=== PATIENT | male | born 1955 | race Caucasian/White ===

== ENCOUNTER 2016-06-11 11:46 | Inpatient (IN) | payer BC ==
[2016-06-11] MEDS ORDERED: Albuterol/Ipratropium 3.0-0.5 MG/3 ML Neb Soln NEB ONE (12:16)
[2016-06-11] MEDS ORDERED: Albuterol 0.083% 2.5 MG/3 ML Neb Soln NEB ONE (12:36)
[2016-06-11] MEDS ORDERED: methylPREDNISolone Sodium Succinate 125 MG/2 ML SDV IVPUSH ONE (12:36)
[2016-06-11 13:05] LABS: CHLORIDE,CL 104 mmol/L (101-111); SODIUM,NA 138 mmol/L (135-145)
[2016-06-11] MEDS: Sodium Chloride 0.9% 10 ML Syringe FLUSH PRN ×3 (13:10→16:06)
--- NOTE | 2016-06-11 13:33 | EDM.PDOC ---
Scribed by Masha Gongora 06/11/16 1243 for Michael Montgomery MD ED HISTORY OF PRESENT ILLNESS - General Chief Complaint: Respiratory Problem Stated Complaint: COUGH, SORE THROAT Time Seen by Provider: 06/11/16 12:25 Source of Information: Reports: Patient, RN, RN notes reviewed History Limitations: Reports: No limitations - History of Present Illness INITIAL COMMENTS - FREE TEXT/NARRATIVE: Arrives by POV with complaints of worsening SOB with green productive cough and wheezing. Reports SOB x 2-3 months. Has been under evaluation from doctor at [facility]. Had echo on 05/16/[address] chest last week. Pet scan lsat week, but doesn't know the results. Had positive cardiac stress test on and is scheduled for cardiac cath on 06/20/[address] Jamison. He was started on Combivent inhaler but it hasn't been helping. Admits to chills beginning last night. Denies fever or chest pain. Severity: severe Location, General: Reports: chest Improves with: Reports: None Worsens with: Reports: None Associated Symptoms (General): Reports: no other symptoms - Related Data Allergies/ADRs: Allergies Allergy/AdvReac Type Severity Reaction Status Date / Time atorvastatin calcium Allergy Muscle Verified 06/11/16 11:58 [From Lipitor] Aches codeine Allergy Nausea and Verified 06/11/16 11:58 Vomiting Iodinated Contrast Media - Allergy Swelling Verified 06/11/16 11:58 Oral and rosuvastatin calcium Allergy Muscle Verified 06/11/16 11:58 [From Crestor] Aches simvastatin [From Zocor] Allergy Muscle Verified 06/11/16 11:58 Aches Home Meds: Home Meds Levothyroxine [Synthroid] 350 mcg PO DAILY 02/15/15 [History] ALPRAZolam [Xanax] 1.5 mg PO QPM 06/11/16 [History] ARIPiprazole [Abilify] 5 mg PO DAILY 06/11/16 [History] Aspirin [Halfprin] 81 mg PO DAILY 06/11/16 [History] Cholecalciferol (Vitamin D3) [Vitamin D3] 1,000 units PO DAILY 06/11/16 [History ] Diltiazem [Cardizem CD] 120 mg PO DAILY 06/11/16 [History] Escitalopram [Lexapro] 10 mg PO DAILY 06/11/16 [History] Escitalopram [Lexapro] 20 mg PO DAILY 06/11/16 [History] Glucosamine HCl [Vegetarian Glucosamine] 2 tab PO DAILY 06/11/16 [History] Ipratropium/Albuterol Sulfate [Combivent Respimat Inhal [place]] 4 gm IH Q6H PRN 06/11/16 [History] Multivitamin with Minerals [Multiple Vitamin] 1 tab PO DAILY 06/11/16 [History] Nitroglycerin [Nitrostat] 1 tab SL ASDIRECTED PRN 06/11/16 [History] OLANZapine [Olanzapine] 5 mg PO DAILY 06/11/16 [History] [place]-3 Fatty Acids [Maxepa] 2 tab PO DAILY 06/11/16 [History] buPROPion [Wellbutrin SR] 300 mg PO DAILY 06/11/16 [History] Past Medical History Cardiovascular History: Reports: CAD (with ischemia), High cholesterol, Hypertension, Other (see below) (Grade 2 diastolic dysfunction CHF.) Respiratory History: Reports: Other (see below) (bilateral hilar adenopathy. Emphysema with bronchiectasis.) Other Genitourinary History: prostate surgery in 08-13-2008 Endocrine/Metabolic History: Reports: Obesity/BMI 30+ Oncologic (Cancer) History: Reports: Prostate Social & Family History - Family History Family Medical History: Noncontributory - Tobacco Use Smoking Status *Q: Former Smoker - Caffeine Use Caffeine Use: Reports: Coffee - Recreational Drug Use Recreational Drug Use: No - Living Situation & Occupation Living situation: Reports: with family Occupation: employed ED ROS GENERAL - Review of Systems Review Of Systems: ROS reveals no pertinent complaints other than HPI. ED EXAM, GENERAL - Physical Exam Exam: See Below Exam Limited By: No limitations General Appearance: obese Eye Exam: bilateral eye: normal inspection Ears: normal external exam, normal canal, hearing grossly normal, normal TMs Nose: normal inspection, normal mucosa, no blood Throat/Mouth: Normal inspection, Normal lips, Normal teeth, Normal gums, Normal oropharynx, Normal voice, No airway compromise Head: atraumatic, normocephalic Neck: normal inspection, supple, non-tender, full range of motion Respiratory/Chest: other (decreased breath sounds bilateral bases. Course crackles and tight wheezes throughout bilateral lung harris. ) Cardiovascular: normal peripheral pulses, regular rate, rhythm, no edema, no gallop, no JVD, no murmur, no rub GI/Abdominal: other (benign obese abdomen.) (Male) Exam: Deferred Rectal (Males) Exam: Deferred Back Exam: normal inspection, full range of motion, NT Extremities: other (normal accept mild +1 edema to bilateral lower extremities to knees, chronic/stable per patient.) Neurological: alert, oriented, CN II-XII intact, normal cognition, normal gait, normal reflexes, no motor/sensory deficits Psychiatric: normal affect, normal mood Skin Exam: Warm, Dry, Intact, Normal color, No rash EKG INTERPRETATION EKG Date: 06/11/16 Time: 11:58 Rhythm: other (sinus rhythm) Rate (beats/min): 75 [place]: normal P-wave: present QRS: normal ST-T: normal QT: normal Course - Vital Signs Last Recorded V/S: Last Vital Signs Temp 36.1 C 06/11/16 11:50 Pulse 73 06/11/16 13:05 Resp 18 06/11/16 11:50 BP 126/81 06/11/16 11:50 Pulse Ox 92 L 06/11/16 13:05 - Orders/Labs/Meds Orders: Active Orders 24 hr Category Date Time Status EKG 12 Lead [EKG Documentation Completion] [RC] STAT Care 06/11/16 12:06 Active Peripheral IV Care [RC] . DIRECTED Care 06/11/16 12:26 Active RT Aerosol Therapy [RC] ASDIRECTED Care 06/11/16 12:16 Active RT Aerosol Therapy [RC] ASDIRECTED Care 06/11/16 12:36 Active CULTURE BLOOD [BC] Stat Lab 06/11/16 12:33 Received CULTURE BLOOD [BC] Stat Lab 06/11/16 12:52 Received CULTURE SPUTUM + SMEAR [RM] Stat Lab 06/11/16 13:12 Received UA W/MICROSCOPIC [URIN] Stat Lab 06/11/16 12:35 Uncollected Sodium Chloride 0.9% [Saline Flush] Med 06/11/16 12:26 Active 10 ml FLUSH ASDIRECTED PRN Blood Culture x2 Reflex Set [OM.PC] Stat Oth 06/11/16 12:34 Ordered Peripheral IV Insertion Adult [OM.PC] Stat Oth 06/11/16 12:25 Ordered RT Supplemental Oxygen Titration [RESPCARE] Stat Oth 06/11/16 12:26 Active Medication Orders Sodium Chloride (Saline Flush) 10 ml FLUSH ASDIRECTED PRN PRN Reason: Keep Vein Open Last Admin: 06/11/16 13:10 Dose: 10 ml Labs: Laboratory Tests 06/11/16 06/11/16 06/11/16 Range/Units 12:33 12:33 12:33 WBC 8.8 (5.0-10.0) 10^3/uL RBC 4.79 (4.6-6.2) 10^6/uL Hgb 13.7 L (14.0-18.0) g/dL Hct 42.8 (40.0-54.0) % MCV 89.4 (80-100) fL MCH 28.6 (27.0-34.0) pg MCHC 32.0 L (33.0-35.0) g/dL Plt Count 252 (150-450) 10^3/uL Neut % (Auto) 64.2 (42.2-75.2) % Lymph % (Auto) 22.2 (20.5-50.1) % [place] % (Auto) 8.3 H (2-8) % Eos % (Auto) 4.8 H (1.0-3.0) % Baso % (Auto) 0.5 (0.0-1.0) % D-Dimer, Quantitative 394 (0-400) ng/mL Sodium 138 (135-145) mmol/L Potassium 4.2 (3.6-5.0) mmol/L Chloride 104 (101-111) mmol/L Carbon Dioxide 27.0 (21.0-31.0) mmol/L Anion Gap 11.2 BUN 13 (7-18) mg/dL Creatinine 0.8 (0.6-1.3) mg/dL Est Cr Clr Drug Dosing 101.55 mL/min Estimated GFR (MDRD) > 60 BUN/Creatinine Ratio 16.25 Glucose 103 (74-105) mg/dL Lactic Acid (0.5-2.2) mmol/L Calcium 8.6 (8.4-10.2) mg/dl Total Bilirubin 0.4 (0.2-1.0) mg/dL AST 22 (10-42) IU/L ALT 21 (10-60) IU/L Alkaline Phosphatase 89 (42-121) IU/L Troponin I < 0.02 (0.00-0.02) ng/ml C-Reactive Protein (0.0-1.3) mg/dL B-Natriuretic Peptide 16 (0-100) pg/ml Total Protein 6.7 (6.7-8.2) g/dl Albumin 3.9 (3.2-5.5) g/dl Globulin 2.8 Albumin/Globulin Ratio 1.39 06/11/16 06/11/16 Range/Units 12:33 12:33 WBC (5.0-10.0) 10^3/uL RBC (4.6-6.2) 10^6/uL Hgb (14.0-18.0) g/dL Hct (40.0-54.0) % MCV (80-100) fL MCH (27.0-34.0) pg MCHC (33.0-35.0) g/dL Plt Count (150-450) 10^3/uL Neut % (Auto) (42.2-75.2) % Lymph % (Auto) (20.5-50.1) % [place] % (Auto) (2-8) % Eos % (Auto) (1.0-3.0) % Baso % (Auto) (0.0-1.0) % D-Dimer, Quantitative (0-400) ng/mL Sodium (135-145) mmol/L Potassium (3.6-5.0) mmol/L Chloride (101-111) mmol/L Carbon Dioxide (21.0-31.0) mmol/L Anion Gap BUN (7-18) mg/dL Creatinine (0.6-1.3) mg/dL Est Cr Clr Drug Dosing mL/min Estimated GFR (MDRD) BUN/Creatinine Ratio Glucose (74-105) mg/dL Lactic Acid 1.0 (0.5-2.2) mmol/L Calcium (8.4-10.2) mg/dl Total Bilirubin (0.2-1.0) mg/dL AST (10-42) IU/L ALT (10-60) IU/L Alkaline Phosphatase (42-121) IU/L Troponin I (0.00-0.02) ng/ml C-Reactive Protein 1.5 H (0.0-1.3) mg/dL B-Natriuretic Peptide (0-100) pg/ml Total Protein (6.7-8.2) g/dl Albumin (3.2-5.5) g/dl Globulin Albumin/Globulin Ratio Meds: Medications Generic Name Dose Route Start Last Admin Trade Name Freq PRN Reason Stop Dose Admin Sodium Chloride 10 ml 06/11/16 12:26 06/11/16 13:10 Saline Flush FLUSH 10 ml ASDIRECTED PRN Administration Keep Vein Open Discontinued Medications Generic Name Dose Route Start Last Admin Trade Name Freq PRN Reason Stop Dose Admin Albuterol 2.5 mg 06/11/16 12:36 06/11/16 13:05 Proventil Neb Soln NEB 06/11/16 12:37 2.5 mg ONETIME ONE Administration Albuterol/Ipratropium 3 ml 06/11/16 12:16 06/11/16 12:21 Duoneb 3.0-0.5 Mg/3 Ml NEB 06/11/16 12:17 3 ml ONETIME ONE Administration Methylprednisolone Sodium Succinate 125 mg 06/11/16 12:36 06/11/16 13:08 Solu-Medrol IVPUSH 06/11/16 12:37 125 mg ONETIME ONE Administration - Radiology Interpretation Free Text/Narrative:: Chest x-ray: No acute findings per rad report. Departure - Departure Time of Disposition: 13:32 (Admit to Dr. Loco) Disposition: Admitted As Inpatient 64 Condition: serious Clinical Impression: COPD exacerbation, Hypoxia Bronchiectasis Qualifiers: Bronchiectasis type: with acute exacerbation Qualified Code(s): J47.1 - Bronchiectasis with (acute) exacerbation Forms: ED Department Discharge - My Orders Last 24 Hours: My Active Orders 06/11/16 12:06 EKG 12 Lead [EKG Documentation Completion] [RC] STAT 06/11/16 12:16 RT Aerosol Therapy [RC] ASDIRECTED 06/11/16 12:25 Peripheral IV Insertion Adult [OM.PC] Stat 06/11/16 12:26 Peripheral IV Care [RC] . DIRECTED Sodium Chloride 0.9% [Saline Flush] 10 ml FLUSH ASDIRECTED PRN RT Supplemental Oxygen Titration [RESPCARE] Stat 06/11/16 12:33 CULTURE BLOOD [BC] Stat 06/11/16 12:34 Blood Culture x2 Reflex Set [OM.PC] Stat 06/11/16 12:35 UA W/MICROSCOPIC [URIN] Stat 06/11/16 12:36 RT Aerosol Therapy [RC] ASDIRECTED 06/11/16 12:52 CULTURE BLOOD [BC] Stat 06/11/16 13:12 CULTURE SPUTUM + SMEAR [RM] Stat - Assessment/Plan Last 24 Hours: My Active Orders 06/11/16 12:06 EKG 12 Lead [EKG Documentation Completion] [RC] STAT 06/11/16 12:16 RT Aerosol Therapy [RC] ASDIRECTED 06/11/16 12:25 Peripheral IV Insertion Adult [OM.PC] Stat 06/11/16 12:26 Peripheral IV Care [RC] . DIRECTED Sodium Chloride 0.9% [Saline Flush] 10 ml FLUSH ASDIRECTED PRN RT Supplemental Oxygen Titration [RESPCARE] Stat 06/11/16 12:33 CULTURE BLOOD [BC] Stat 06/11/16 12:34 Blood Culture x2 Reflex Set [OM.PC] Stat 06/11/16 12:35 UA W/MICROSCOPIC [URIN] Stat 06/11/16 12:36 RT Aerosol Therapy [RC] ASDIRECTED 06/11/16 12:52 CULTURE BLOOD [BC] Stat 06/11/16 13:12 CULTURE SPUTUM + SMEAR [RM] Stat I have read and agree with the documentation that has been completed regarding this visit. By signing this record, I attest that the documentation was completed in my physical presence and is an accurate record of the encounter.
[2016-06-11] MEDS ORDERED: Nitroglycerin 0.4 MG Tab.SL SL PRN (14:26)
[2016-06-11] MEDS ORDERED: Albuterol 0.083% 2.5 MG/3 ML Neb Soln NEB PRN (14:29)
[2016-06-11] MEDS ORDERED: Sodium Chloride 0.9% 10 ML Syringe FLUSH PRN (14:35)
[2016-06-11] MEDS ORDERED: Docusate Sodium 100 MG Cap PO PRN (14:35)
[2016-06-11] MEDS ORDERED: Acetaminophen 325 MG Tab PO PRN (14:35)
[2016-06-11] MEDS: Albuterol/Ipratropium 3.0-0.5 MG/3 ML Neb Soln NEB SCH ×2 (14:52→22:55)
[2016-06-11] MEDS: Budesonide 0.5 MG/2 ML Neb Susp NEB SCH ×2 (14:52→17:16)
--- NOTE | 2016-06-11 15:02 | PCM.HP ---
H&P History of Present Illness - General Date of Service: 06/11/16 Admit Problem/Dx: Admission Diagnosis/Problem Admission Diagnosis/Problem Dyspnea Source of Information: Patient History Limitations: Reports: No limitations - History of Present Illness Initial Comments - Free Text/Narative: presented with a few months history of shortness of breath. This has been evaluated at [facility] by pulmonary medicine, cardiology. from cardiac point recommendation was to treat COPD, obstructive sleep apnea. He was scheduled for a PET scan From cardiac point of the patient's beta johanna was changed to Cardizem due to history of myocardial bridging. He was noted to have left ventricular hypertrophy, pulmonary hypertension. He was scheduled for an angiogram. The patient presented with 3 days of worsening, increased shortness of breath especially with activity. There is cough associated with green sputum. He is wheezing No fever - Related Data Allergies/Adverse Reactions: Allergies Allergy/AdvReac Type Severity Reaction Status Date / Time atorvastatin calcium Allergy Muscle Verified 06/11/16 11:58 [From Lipitor] Aches codeine Allergy Nausea and Verified 06/11/16 11:58 Vomiting Iodinated Contrast Media - Allergy Swelling Verified 06/11/16 11:58 Oral and rosuvastatin calcium Allergy Muscle Verified 06/11/16 11:58 [From Crestor] Aches simvastatin [From Zocor] Allergy Muscle Verified 06/11/16 11:58 Aches Home Medications: Home Meds Levothyroxine [Synthroid] 350 mcg PO DAILY 02/15/15 [History] ARIPiprazole [Abilify] 10 mg PO DAILY 06/11/16 [History] Acetaminophen [Tylenol Arthritis] 650 mg PO Q6H PRN 06/11/16 [History] Aspirin [Halfprin] 81 mg PO DAILY 06/11/16 [History] Cholecalciferol (Vitamin D3) [Vitamin D3] 1,000 units PO DAILY 06/11/16 [History ] Diltiazem [Cardizem CD] 120 mg PO DAILY 06/11/16 [History] Escitalopram [Lexapro] 30 mg PO DAILY 06/11/16 [History] Glucosamine HCl [Vegetarian Glucosamine] 2 tab PO DAILY 06/11/16 [History] Ipratropium/Albuterol Sulfate [Combivent Respimat Inhal [place]] 4 gm IH Q6H PRN 06/11/16 [History] LORazepam 1.5 mg PO BEDTIME 06/11/16 [History] Multivitamin with Minerals [Multiple Vitamin] 1 tab PO DAILY 06/11/16 [History] Nitroglycerin [Nitrostat] 1 tab SL ASDIRECTED PRN 06/11/16 [History] OLANZapine [Olanzapine] 5 mg PO DAILY 06/11/16 [History] [place]-3 Fatty Acids [Maxepa] 1 tab PO DAILY 06/11/16 [History] buPROPion [Wellbutrin SR] 450 mg PO DAILY 06/11/16 [History] Past Medical History HEENT History: Reports: Cataract Cardiovascular History: Reports: CAD, High cholesterol, Hypertension, Other ( see below) Other Cardiovascular History: scheduled for angiogram Jun 20 2016 Respiratory History: Reports: Asthma, COPD, Sleep apnea Other Genitourinary History: prostate surgery in 08-13-2008 Psychiatric History: Reports: Addiction, Anxiety, Depression Endocrine/Metabolic History: Reports: Hypothyroidism, Obesity/BMI 30+ Oncologic (Cancer) History: Reports: Prostate - Past Surgical History Cardiovascular Surgical History: Reports: None Respiratory Surgical History: Reports: None GI Surgical History: Reports: Colonoscopy, EGD, Hernia, abdominal Male Surgical History: Reports: None Musculoskeletal Surgical History: Reports: Arthroscopic procedure, Hip replacement Other Musculoskeletal Surgeries/Procedures:: r hip replacement Social & Family History - Family History Family Medical History: Noncontributory - Tobacco Use Smoking Status *Q: Former Smoker Years of Tobacco use: 40 Used Tobacco, but Quit: Yes Month Tobacco Last Used: 12 - Caffeine Use Caffeine Use: Reports: Coffee - Recreational Drug Use Recreational Drug Use: No - Living Situation & Occupation Living situation: Reports: with family Occupation: employed H&P Review of Systems - Review of Systems: Review Of Systems: See Below General: Denies: fever Pulmonary: Reports: Shortness of Breath, Wheezing Cardiovascular: Denies: chest pain Gastrointestinal: Denies: Abdominal pain Exam - Exam Exam: See Below - Vital Signs Vital Signs: Last Vital Signs Temp 37.1 C 06/11/16 13:58 Pulse 81 06/11/16 13:58 Resp 22 H 06/11/16 13:58 BP 126/72 06/11/16 13:58 Pulse Ox 93 L 06/11/16 14:35 Weight: 132.721 kg - Exam General: alert, oriented Neck: supple Lungs: Normal respiratory effort, Decreased breath sounds, Wheezing Cardiovascular: regular rate, regular rhythm Abdomen: normal bowel sounds, soft Extremities: normal inspection. No: edema Neurological: cranial nerves intact, reflexes equal bilateral Neuro Extensive - Mental Status: alert, oriented x3, normal mood/affect, normal cognition - Patient Data Result Diagrams: 06/11/16 12:33 06/11/16 12:33 *Q Meaningful Use (ADM) - VTE *Q VTE Criteria *Q: - Stroke *Q Stroke Criteria *Q: - AMI *Q AMI Criteria *Q: - Problem List (1) COPD exacerbation SNOMED Code(s): 826224557, 918121476 ICD Code: J44.1 - CHRONIC OBSTRUCTIVE PULMONARY DISEASE W (ACUTE) EXACERBATION Status: Acute Current Visit: Yes Problem List Initiated/Reviewed/Updated: Yes Orders Last 24hrs: Active Orders 24 hr Category Date Time Status Patient Status [ADT] Routine ADT 06/11/16 14:35 Active Antiembolic Devices [RC] PER UNIT ROUTINE Care 06/11/16 14:36 Active Oxygen Therapy [RC] PRN Care 06/11/16 14:35 Active RT Aerosol Therapy [RC] ,, Care 06/11/16 14:28 Active Up ad Hillary [RC] ASDIRECTED Care 06/11/16 14:35 Active VTE/DVT Education [RC] PER UNIT ROUTINE Care 06/11/16 14:35 Active Vital Signs [RC] Q4H Care 06/11/16 14:35 Active Regular Diet [DIET] Diet 06/11/16 Dinner Active ARIPiprazole [Abilify] Med 06/12/16 09:00 Pending 10 mg PO DAILY Acetaminophen [Tylenol] Med 06/11/16 14:35 Active 650 mg PO Q4H PRN Albuterol [Proventil Neb Soln] Med 06/11/16 14:29 Active 2.5 mg NEB Q4HRRT PRN Albuterol/Ipratropium [DuoNeb 3.0-0.5 MG/3 ML] Med 06/11/16 15:00 Active 3 ml NEB Q8HRRT Aspirin [Halfprin] Med 06/12/16 09:00 Active 81 mg PO DAILY Azithromycin [Zithromax] 500 mg Med 06/11/16 15:00 Active Sodium Chloride 0.9% [Normal Saline] 250 ml IV Q24H Budesonide [Pulmicort] Med 06/11/16 14:30 Active 0.5 mg NEB BIDRT Cholecalciferol (Vitamin D3) [Vitamin D3] Med 06/12/16 09:00 Pending 1,000 units PO DAILY Diltiazem [Cardizem CD] Med 06/12/16 09:00 Active 120 mg PO DAILY Docusate Sodium [Colace] Med 06/11/16 14:35 Active 100 mg PO BID PRN Escitalopram [Lexapro] Med 06/12/16 09:00 Active 30 mg PO DAILY Heparin Sodium Med 06/11/16 22:00 Active 5,000 units SUBCUT Q8HR LORazepam [Ativan] Med 06/11/16 21:00 Active 1.5 mg PO BEDTIME Levothyroxine Med 06/12/16 06:00 Active 300 mcg PO ACBRK Levothyroxine [Synthroid] Med 06/12/16 06:00 Active 50 mcg PO ACBRK Multivitamins/Minerals [Vitamins and Minerals] Med 06/12/16 09:00 Active 1 tab PO DAILY Nitroglycerin [Nitrostat] Med 06/11/16 14:26 Active 0.4 mg SL Q5M PRN OLANZapine [ZyPREXA] Med 06/12/16 09:00 Active 5 mg PO DAILY Sodium Chloride 0.9% [Saline Flush] Med 06/11/16 14:35 Active 10 ml FLUSH ASDIRECTED PRN buPROPion [Wellbutrin SR] Med 06/12/16 09:00 Pending 450 mg PO DAILY cefTRIAXone [Rocephin] 1 gm Med 06/11/16 14:30 Active Sodium Chloride 0.9% [Normal Saline] 50 ml IV Q24H methylPREDNISolone Sod Succ [Solu-MEDROL] Med 06/11/16 18:00 Active 40 mg IVPUSH Q8H Saline Lock Insert [OM.PC] Routine Oth 06/11/16 14:35 Ordered Sequential Compression Device [OM.PC] Per Unit Routine Oth 06/11/16 14:36 Ordered Resuscitation Status Routine Resus Stat 06/11/16 14:35 Ordered Medication Orders Acetaminophen (Tylenol) 650 mg PO Q4H PRN PRN Reason: Pain (Mild 1-3)/fever Albuterol (Proventil Neb Soln) 2.5 mg NEB Q4HRRT PRN PRN Reason: sob Albuterol/Ipratropium (Duoneb 3.0-0.5 Mg/3 Ml) 3 ml NEB Q8HRRT [facility] Last Admin: 06/11/16 14:52 Dose: 3 ml Aspirin (Halfprin) 81 mg PO DAILY [facility] Budesonide (Pulmicort) 0.5 mg NEB BIDRT [facility] Last Admin: 06/11/16 14:52 Dose: 0.5 mg Bupropion HCl (Wellbutrin Sr) 450 mg PO DAILY [facility] Diltiazem HCl (Cardizem Cd) 120 mg PO DAILY [facility] Docusate Sodium (Colace) 100 mg PO BID PRN PRN Reason: Constipation Escitalopram Oxalate (Lexapro) 30 mg PO DAILY [facility] Heparin Sodium (Porcine) (Heparin Sodium) 5,000 units SUBCUT Q8HR [facility] Azithromycin 500 mg/ Sodium (Chloride) 250 mls @ 250 mls/hr IV Q24H [facility] Ceftriaxone Sodium 1 gm/ (Sodium Chloride) 50 mls @ 100 mls/hr IV Q24H [facility] Levothyroxine Sodium (Synthroid) 50 mcg PO ACBRK CARLOS Levothyroxine Sodium (Levothyroxine) 300 mcg PO ACBRK CARLOS Lorazepam (Ativan) 1.5 mg PO BEDTIME [facility] Methylprednisolone Sodium Succinate (Solu-Medrol) 40 mg IVPUSH Q8H [facility] Multivitamins/Minerals (Vitamins And Minerals) 1 tab PO DAILY [facility] Nitroglycerin (Nitrostat) 0.4 mg SL Q5M PRN PRN Reason: Chest Pain Non-Formulary Medication (Aripiprazole [Abilify]) 10 mg PO DAILY [facility] Non-Formulary Medication (Cholecalciferol (Vitamin D3) [Vitamin D3]) 1,000 units PO DAILY [facility] Olanzapine (Zyprexa) 5 mg PO DAILY [facility] Sodium Chloride (Saline Flush) 10 ml FLUSH ASDIRECTED PRN PRN Reason: Keep Vein Open Last Admin: 06/11/16 13:10 Dose: 10 ml Sodium Chloride (Saline Flush) 10 ml FLUSH ASDIRECTED PRN PRN Reason: Keep Vein Open Assessment/Plan Comment:: Shortness of breath Likely due to an acute COPD exacerbation Treat with Pulmicort twice a day, Solu-Medrol IV, scheduled DuoNeb, as needed albuterol nebulizer Acute bronchitis vs Pneumonia CT 06/01/2016 At [facility] IMPRESSION: 1. Diffuse emphysematous changes in the lungs. 2. Bronchiectasis in the mid to lower lungs is more prominent centrally but does extend peripherally in the posterior lower lobes. 3. Mild groundglass opacity in the RIGHT lung base and scattered areas of subsegmental atelectasis or scar. No other definable focal infiltrate. 4. Minimal pleural thickening posterior mid thorax with adjacent atelectasis. 5. Fatty infiltration of the liver. 6. Probable small hiatal hernia. The groundglass opacity might actually represent a pneumonia Obtain sputum culture, blood culture Treat with azithromycin and ceftriaxone Coronary artery disease Recently had an abnormal stress test, was scheduled for elective angiogram next week Monitor for symptoms If unstable transfer to [place], his cath lab tech is Dr. Jamison Continue aspirin History of anxiety Continue Lexapro, Abilify, Zyprexa, Wellbutrin DVT prophylaxis will be with SQ heparin
[2016-06-11] MEDS: cefTRIAXone 1 GM in Sodium Chloride 0.9% 50 ML IV SCH (15:03)
[2016-06-11] MEDS: Azithromycin 500 MG in Sodium Chloride 0.9% 250 ML IV SCH (16:06)
[2016-06-11] MEDS: methylPREDNISolone Sodium Succinate 40 MG/1 ML SDV IVPUSH SCH (17:15)
[2016-06-11] MEDS: LORazepam 1 MG Tab PO SCH (22:50)
[2016-06-11] MEDS: Heparin Sodium 5,000 Units/ML Vial SUBCUT SCH (22:54)
[2016-06-12] MEDS: methylPREDNISolone Sodium Succinate 40 MG/1 ML SDV IVPUSH SCH ×3 (01:59→18:08)
[2016-06-12] MEDS: Levothyroxine 50 MCG Tab PO SCH (06:15)
[2016-06-12] MEDS: Levothyroxine 150 MCG Tab PO SCH (06:16)
[2016-06-12] MEDS: Heparin Sodium 5,000 Units/ML Vial SUBCUT SCH ×3 (06:18→22:07)
[2016-06-12] MEDS: Budesonide 0.5 MG/2 ML Neb Susp NEB SCH ×2 (08:00→17:50)
[2016-06-12] MEDS: Albuterol/Ipratropium 3.0-0.5 MG/3 ML Neb Soln NEB SCH ×3 (08:01→22:08)
[2016-06-12] MEDS: Diltiazem 120 MG Cap.CD PO SCH (09:05)
[2016-06-12] MEDS: Aspirin 81 MG Tab.EC PO SCH (09:06)
[2016-06-12] MEDS: Escitalopram 10 MG Tab PO SCH (09:06)
[2016-06-12] MEDS: buPROPion 150 MG Tab.ER PO SCH (09:07)
[2016-06-12] MEDS: Multivitamins, Therapeutic with Minerals Tab PO SCH (09:08)
[2016-06-12] MEDS: Cholecalciferol (Vitamin D3) 400 Unit Tab PO SCH (09:08)
[2016-06-12] MEDS: OLANZapine 5 MG Tab PO SCH (09:10)
--- NOTE | 2016-06-12 11:51 | PCM.PN ---
- General Info Date of Service: 06/12/16 Admission Dx/Problem (Free Text): Admission Diagnosis/Problem Admission Diagnosis/Problem COPD exacerbation Subjective Update: patient states that he feels a lot better however he is still having wheezing, cough with a green sputum, and feeling warm and cold. He denies shortness of breath this morning even when he walks to the bathroom. He states yesterday before admission he was running out of breath when he would walk to the bathroom. He denies chest pain, headache, nausea, vomiting, abdomen pain, urinary symptoms, swelling in the legs, unilateral weakness. - Patient Data Vitals - most recent: Last Vital Signs Temp 36.9 C 06/12/16 11:00 Pulse 92 06/12/16 11:00 Resp 20 06/12/16 11:00 BP 109/60 06/12/16 11:00 Pulse Ox 94 L 06/12/16 11:00 Weight - most recent: 132.721 kg I&O - last 24 hours: Intake & Output 06/11/16 06/12/16 06/12/16 22:59 06:59 14:59 Intake Total 1000 730 Output Total 500 600 Balance -500 400 730 Lab Results last 24 hrs: Laboratory Results - last 24 hr 06/11/16 Range/Units 16:15 Urine Color Dark yellow (YELLOW) Urine Appearance Slightly cloudy (CLEAR) Urine pH 5.0 (5.0-9.0) Ur Specific Lucas >= 1.030 (1.005-1.030) Urine Protein Trace H (NEGATIVE) Urine Glucose (UA) Negative (NEGATIVE) Urine Ketones Trace H (NEGATIVE) Urine Occult Blood Negative (NEGATIVE) Urine Nitrite Negative (NEGATIVE) Urine Bilirubin Small H (NEGATIVE) Urine Urobilinogen 0.2 (0.2-1.0) mg/dL Ur Leukocyte Esterase Negative (NEGATIVE) Urine RBC 0-5 /HPF Urine WBC Not seen (0-5/HPF) /HPF Amorphous Sediment Rare (0/HPF) /HPF Urine Mucus Rare /LPF Med Orders - Current: Current Medications Acetaminophen (Tylenol) 650 mg PO Q4H PRN PRN Reason: Pain (Mild 1-3)/fever Albuterol (Proventil Neb Soln) 2.5 mg NEB Q4HRRT PRN PRN Reason: sob Albuterol/Ipratropium (Duoneb 3.0-0.5 Mg/3 Ml) 3 ml NEB Q8HRRT [facility] Last Admin: 06/12/16 08:01 Dose: 3 ml Aspirin (Halfprin) 81 mg PO DAILY [facility] Last Admin: 06/12/16 09:06 Dose: 81 mg Budesonide (Pulmicort) 0.5 mg NEB BIDRT [facility] Last Admin: 06/12/16 08:00 Dose: 0.5 mg Bupropion HCl (Wellbutrin Xl) 450 mg PO DAILY [facility] Last Admin: 06/12/16 09:07 Dose: 450 mg Cholecalciferol (Vitamin D3) 1,000 units PO DAILY [facility] Last Admin: 06/12/16 09:08 Dose: 1,000 units Diltiazem HCl (Cardizem Cd) 120 mg PO DAILY [facility] Last Admin: 06/12/16 09:05 Dose: 120 mg Docusate Sodium (Colace) 100 mg PO BID PRN PRN Reason: Constipation Escitalopram Oxalate (Lexapro) 30 mg PO DAILY [facility] Last Admin: 06/12/16 09:06 Dose: 30 mg Heparin Sodium (Porcine) (Heparin Sodium) 5,000 units SUBCUT Q8HR [facility] Last Admin: 06/12/16 06:18 Dose: 5,000 units Azithromycin 500 mg/ Sodium (Chloride) 250 mls @ 250 mls/hr IV Q24H [facility] Last Admin: 06/11/16 16:06 Dose: 250 mls/hr Ceftriaxone Sodium 1 gm/ (Sodium Chloride) 50 mls @ 100 mls/hr IV Q24H [facility] Last Admin: 06/11/16 15:03 Dose: 100 mls/hr Levothyroxine Sodium (Synthroid) 50 mcg PO ACBRK [facility] Last Admin: 06/12/16 06:15 Dose: 50 mcg Levothyroxine Sodium (Levothyroxine) 300 mcg PO ACBRK [facility] Last Admin: 06/12/16 06:16 Dose: 300 mcg Lorazepam (Ativan) 1.5 mg PO BEDTIME [facility] Last Admin: 06/11/16 22:50 Dose: 1.5 mg Methylprednisolone Sodium Succinate (Solu-Medrol) 40 mg IVPUSH Q8H [facility] Last Admin: 06/12/16 10:19 Dose: 40 mg Multivitamins/Minerals (Vitamins And Minerals) 1 tab PO DAILY [facility] Last Admin: 06/12/16 09:08 Dose: 1 tab Nitroglycerin (Nitrostat) 0.4 mg SL Q5M PRN PRN Reason: Chest Pain Non-Formulary Medication (Aripiprazole [Abilify]) 10 mg PO DAILY [facility] Olanzapine (Zyprexa) 5 mg PO DAILY [facility] Last Admin: 06/12/16 09:10 Dose: Not Given Sodium Chloride (Saline Flush) 10 ml FLUSH ASDIRECTED PRN PRN Reason: Keep Vein Open Last Admin: 06/11/16 16:06 Dose: 10 ml Sodium Chloride (Saline Flush) 10 ml FLUSH ASDIRECTED PRN PRN Reason: Keep Vein Open Discontinued Medications Albuterol (Proventil Neb Soln) 2.5 mg NEB ONETIME ONE Stop: 06/11/16 12:37 Last Admin: 06/11/16 13:05 Dose: 2.5 mg Albuterol/Ipratropium (Duoneb 3.0-0.5 Mg/3 Ml) 3 ml NEB ONETIME ONE Stop: 06/11/16 12:17 Last Admin: 06/11/16 12:21 Dose: 3 ml Methylprednisolone Sodium Succinate (Solu-Medrol) 125 mg IVPUSH ONETIME ONE Stop: 06/11/16 12:37 Last Admin: 06/11/16 13:08 Dose: 125 mg - Exam General: alert, oriented, cooperative, no acute distress HEENT: Pupils equal, Pupils reactive, EOMI, Mucous membr. moist/pink. No: Scleral icterus Neck: supple, trachea midline, no JVD Lungs: Normal respiratory effort, Decreased breath sounds (Global). No: Crackles, Rales, Rhonchi, Rub, Stridor, Wheezing Cardiovascular: Regular Rate, Regular Rhythm Abdomen: bowel sounds present, soft, no tenderness, no distension. No: rigidity , rebound, guarding, tenderness, distension (Male) Exam: Deferred Back Exam: normal inspection Extremities: normal pulses, no tenderness/swelling, no clubbing, no cyanosis, edema (trace edema in lower extremities bilaterally) Skin: warm, dry, intact Neurological: no new focal deficit, normal speech, normal tone Psy/Mental Status: alert, normal affect, normal mood - Problem List Review Problem List Initiated/Reviewed/Updated: Yes - Plan Plan:: Acute COPD exacerbation Continue with Pulmicort twice a day, Solu-Medrol IV, scheduled DuoNeb, as needed albuterol nebulizer Acute bronchitis vs Pneumonia sputum Gram stain showed more than 25 WBCs/LPF and moderate gram-positive diplococci awaiting sputum culture, blood culture Continue azithromycin and ceftriaxone Coronary artery disease Recently had an abnormal stress test, was scheduled for elective angiogram next week Monitor for symptoms If unstable transfer to [place], 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 Jamison Continue aspirin History of anxiety Continue Lexapro, Abilify, Zyprexa, Wellbutrin DVT prophylaxis will be with SQ heparin
[2016-06-12] MEDS: ARIPIPRAZOLE 5 MG PO SCH (12:12)
[2016-06-12] MEDS: cefTRIAXone 1 GM in Sodium Chloride 0.9% 50 ML IV SCH (14:36)
[2016-06-12] MEDS: Azithromycin 500 MG in Sodium Chloride 0.9% 250 ML IV SCH (15:06)
[2016-06-12] MEDS ORDERED: Sodium Chloride 0.65% Nasal Spray 45 ML Bottle NAS PRN (18:00)
[2016-06-12] MEDS: Sodium Chloride 0.9% 10 ML Syringe FLUSH PRN (18:09)
[2016-06-12] MEDS: LORazepam 1 MG Tab PO SCH (23:22)
[2016-06-13] MEDS: cefTRIAXone 1 GM in Sodium Chloride 0.9% 50 ML IV SCH (03:00)
[2016-06-13] MEDS: methylPREDNISolone Sodium Succinate 40 MG/1 ML SDV IVPUSH SCH ×2 (06:51→09:35)
[2016-06-13] MEDS: Heparin Sodium 5,000 Units/ML Vial SUBCUT SCH ×3 (06:51→22:02)
[2016-06-13] MEDS: Levothyroxine 50 MCG Tab PO SCH (06:52)
[2016-06-13] MEDS: Levothyroxine 150 MCG Tab PO SCH (06:52)
[2016-06-13 07:03] LABS: CHLORIDE,CL 101 mmol/L (101-111); SODIUM,NA 135 mmol/L (135-145)
[2016-06-13] MEDS: Budesonide 0.5 MG/2 ML Neb Susp NEB SCH ×3 (07:39→18:26)
[2016-06-13] MEDS: Albuterol/Ipratropium 3.0-0.5 MG/3 ML Neb Soln NEB SCH ×3 (07:39→22:03)
[2016-06-13] MEDS: ARIPIPRAZOLE 5 MG PO SCH (08:49)
[2016-06-13] MEDS: buPROPion 150 MG Tab.ER PO SCH (08:50)
[2016-06-13] MEDS: Escitalopram 10 MG Tab PO SCH (08:50)
[2016-06-13] MEDS: OLANZapine 5 MG Tab PO SCH (08:50)
[2016-06-13] MEDS: Multivitamins, Therapeutic with Minerals Tab PO SCH (08:51)
[2016-06-13] MEDS: Diltiazem 120 MG Cap.CD PO SCH (08:51)
[2016-06-13] MEDS: Aspirin 81 MG Tab.EC PO SCH (08:52)
[2016-06-13] MEDS: Cholecalciferol (Vitamin D3) 400 Unit Tab PO SCH (08:52)
[2016-06-13] MEDS: Sodium Chloride 0.9% 10 ML Syringe FLUSH PRN ×2 (09:35→14:54)
--- NOTE | 2016-06-13 11:47 | PCM.PN ---
- General Info Date of Service: 06/13/16 Admission Dx/Problem (Free Text): Admission Diagnosis/Problem Admission Diagnosis/Problem COPD exacerbation Subjective Update: patient states that he feels a lot better today however he is still having cough with a green sputum but improved. He denies shortness of breath this morning even when he walks to the bathroom. he has not been ambulating in the hallway. He denies chest pain, headache, nausea, vomiting, abdomen pain, urinary symptoms, swelling in the legs, unilateral weakness. - Patient Data Vitals - most recent: Last Vital Signs Temp 36.3 C 06/13/16 07:45 Pulse 93 06/13/16 08:51 Resp 20 06/13/16 07:45 BP 126/69 06/13/16 08:51 Pulse Ox 95 06/13/16 07:45 Weight - most recent: 132.721 kg I&O - last 24 hours: Intake & Output 06/12/16 06/13/16 06/13/16 22:59 06:59 14:59 Intake Total 50 Output Total 1350 Balance 50 -1350 Lab Results last 24 hrs: Laboratory Results - last 24 hr 06/13/16 Range/Units 06:03 Sodium 135 (135-145) mmol/L Potassium 4.5 (3.6-5.0) mmol/L Chloride 101 (101-111) mmol/L Carbon Dioxide 26.0 (21.0-31.0) mmol/L Anion Gap 12.5 BUN 17 (7-18) mg/dL Creatinine 0.8 (0.6-1.3) mg/dL Est Cr Clr Drug Dosing 101.97 mL/min Estimated GFR (MDRD) > 60 Glucose 217 H (74-105) mg/dL Calcium 8.6 (8.4-10.2) mg/dl Med Orders - Current: Current Medications Acetaminophen (Tylenol) 650 mg PO Q4H PRN PRN Reason: Pain (Mild 1-3)/fever Albuterol (Proventil Neb Soln) 2.5 mg NEB Q4HRRT PRN PRN Reason: sob Albuterol/Ipratropium (Duoneb 3.0-0.5 Mg/3 Ml) 3 ml NEB Q8HRRT [facility] Last Admin: 06/13/16 07:39 Dose: 3 ml Aspirin (Halfprin) 81 mg PO DAILY [facility] Last Admin: 06/13/16 08:52 Dose: 81 mg Budesonide (Pulmicort) 0.5 mg NEB BIDRT [facility] Last Admin: 06/13/16 07:39 Dose: 0.5 mg Bupropion HCl (Wellbutrin Xl) 450 mg PO DAILY [facility] Last Admin: 06/13/16 08:50 Dose: 450 mg Cholecalciferol (Vitamin D3) 1,000 units PO DAILY [facility] Last Admin: 06/13/16 08:52 Dose: 1,000 units Diltiazem HCl (Cardizem Cd) 120 mg PO DAILY [facility] Last Admin: 06/13/16 08:51 Dose: 120 mg Docusate Sodium (Colace) 100 mg PO BID PRN PRN Reason: Constipation Escitalopram Oxalate (Lexapro) 30 mg PO DAILY [facility] Last Admin: 06/13/16 08:50 Dose: 30 mg Heparin Sodium (Porcine) (Heparin Sodium) 5,000 units SUBCUT Q8HR [facility] Last Admin: 06/13/16 06:51 Dose: 5,000 units Azithromycin 500 mg/ Sodium (Chloride) 250 mls @ 250 mls/hr IV Q24H [facility] Last Admin: 06/12/16 15:06 Dose: 250 mls/hr Ceftriaxone Sodium 1 gm/ (Sodium Chloride) 50 mls @ 100 mls/hr IV Q24H [facility] Last Admin: 06/12/16 14:36 Dose: 100 mls/hr Levothyroxine Sodium (Synthroid) 50 mcg PO ACBRK [facility] Last Admin: 06/13/16 06:52 Dose: 50 mcg Levothyroxine Sodium (Levothyroxine) 300 mcg PO ACBRK [facility] Last Admin: 06/13/16 06:52 Dose: 300 mcg Lorazepam (Ativan) 1.5 mg PO BEDTIME [facility] Last Admin: 06/12/16 23:22 Dose: 1.5 mg Methylprednisolone Sodium Succinate (Solu-Medrol) 40 mg IVPUSH Q8H [facility] Last Admin: 06/13/16 09:35 Dose: 40 mg Multivitamins/Minerals (Vitamins And Minerals) 1 tab PO DAILY [facility] Last Admin: 06/13/16 08:51 Dose: 1 tab Nitroglycerin (Nitrostat) 0.4 mg SL Q5M PRN PRN Reason: Chest Pain Non-Formulary Medication (Ipratropium [place]) 2 spray NS BID [facility] Olanzapine (Zyprexa) 5 mg PO DAILY [facility] Last Admin: 06/13/16 08:50 Dose: 5 mg Aripiprazole [ Abilify] 5 MgPt's Own Med 0 each PO DAILY [facility] Last Admin: 06/13/16 08:49 Dose: 1 each Sodium Chloride (Saline Flush) 10 ml FLUSH ASDIRECTED PRN PRN Reason: Keep Vein Open Last Admin: 06/13/16 09:35 Dose: 10 ml Sodium Chloride ([place] Nasal [place]) 1 ml TENA BID PRN PRN Reason: dry nose Discontinued Medications Albuterol (Proventil Neb Soln) 2.5 mg NEB ONETIME ONE Stop: 06/11/16 12:37 Last Admin: 06/11/16 13:05 Dose: 2.5 mg Albuterol/Ipratropium (Duoneb 3.0-0.5 Mg/3 Ml) 3 ml NEB ONETIME ONE Stop: 06/11/16 12:17 Last Admin: 06/11/16 12:21 Dose: 3 ml Methylprednisolone Sodium Succinate (Solu-Medrol) 125 mg IVPUSH ONETIME ONE Stop: 06/11/16 12:37 Last Admin: 06/11/16 13:08 Dose: 125 mg Sodium Chloride (Saline Flush) 10 ml FLUSH ASDIRECTED PRN PRN Reason: Keep Vein Open - Exam General: alert, oriented, cooperative, no acute distress. No: mild distress, moderate distress, severe distress, sedated, lethargic, obtunded HEENT: Pupils equal, Pupils reactive, EOMI, Mucous membr. moist/pink Neck: supple, trachea midline, no JVD Lungs: Normal respiratory effort, Decreased breath sounds (globally with fair air exchange). No: Crackles, Rales, Rhonchi, Rub, Stridor, Wheezing Cardiovascular: Regular Rate, Regular Rhythm Abdomen: bowel sounds present, soft, no tenderness, no distension Extremities: no edema, normal pulses, no tenderness/swelling, no clubbing, no cyanosis, no calf tenderness Skin: warm, dry, intact Neurological: no new focal deficit Psy/Mental Status: alert, normal affect, normal mood - Problem List Review Problem List Initiated/Reviewed/Updated: Yes - My Orders Last 24 Hours: My Active Orders 06/12/16 18:00 Sodium Chloride 0.65% [[place] Nasal [place]] 1 ml TENA BID PRN 06/12/16 21:00 Ipratropium [place] 2 spray NS BID - Plan Plan:: Acute COPD exacerbation Continue with Pulmicort twice a day, scheduled DuoNeb, as needed albuterol nebulizer change IV steroids to oral prednisone, last does will be on 06/15/69 Acute bronchitis vs Pneumonia x-ray on admission shows no acute findings however the culture is consistent with pneumonia sputum Gram stain showed more than 25 WBCs/LPF and moderate gram-positive diplococci (normal ursula) -blood culture -Continue azithromycin and ceftriaxone Coronary artery disease Recently had an abnormal stress test, was scheduled for elective angiogram next week Monitor for symptoms If unstable transfer to [place], 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
[2016-06-13] MEDS: Azithromycin 500 MG in Sodium Chloride 0.9% 250 ML IV SCH (15:31)
[2016-06-13] MEDS: LORazepam 1 MG Tab PO SCH (23:35)
[2016-06-14] MEDS: Levothyroxine 50 MCG Tab PO SCH (06:10)
[2016-06-14] MEDS: Levothyroxine 150 MCG Tab PO SCH (06:10)
[2016-06-14] MEDS: Heparin Sodium 5,000 Units/ML Vial SUBCUT SCH ×3 (06:10→22:17)
[2016-06-14] MEDS: Albuterol/Ipratropium 3.0-0.5 MG/3 ML Neb Soln NEB SCH ×3 (07:30→17:03)
[2016-06-14] MEDS: Budesonide 0.5 MG/2 ML Neb Susp NEB SCH ×2 (07:30→17:03)
[2016-06-14] MEDS: Multivitamins, Therapeutic with Minerals Tab PO SCH (10:10)
[2016-06-14] MEDS: buPROPion 150 MG Tab.ER PO SCH (10:10)
[2016-06-14] MEDS: OLANZapine 5 MG Tab PO SCH (10:10)
[2016-06-14] MEDS: Diltiazem 120 MG Cap.CD PO SCH (10:11)
[2016-06-14] MEDS: Escitalopram 10 MG Tab PO SCH (10:11)
[2016-06-14] MEDS: Cholecalciferol (Vitamin D3) 400 Unit Tab PO SCH (10:11)
[2016-06-14] MEDS: Aspirin 81 MG Tab.EC PO SCH (10:11)
[2016-06-14] MEDS: ARIPIPRAZOLE 5 MG PO SCH (10:12)
--- NOTE | 2016-06-14 10:38 | PCM.PN ---
- General Info Date of Service: 06/14/16 Admission Dx/Problem (Free Text): Admission Diagnosis/Problem Admission Diagnosis/Problem COPD exacerbation Subjective Update: patient states that he feels better today however he is still having cough but the sputum became clear. He denies shortness of breath this morning even when he walks to the bathroom. but he had some shortness breath walking in the hallway. He denies chest pain, headache, nausea, vomiting, abdomen pain, urinary symptoms, swelling in the legs, unilateral weakness. his oxygen saturation dropped to 85% during the night despite using his CPAP. He is still requiring 1 L of oxygen to keep his sats above 90 - Patient Data Vitals - most recent: Last Vital Signs Temp 36.3 C 06/14/16 07:28 Pulse 76 06/14/16 10:11 Resp 20 06/14/16 07:28 BP 140/72 06/14/16 10:11 Pulse Ox 92 L 06/14/16 07:28 Weight - most recent: 132.721 kg I&O - last 24 hours: Intake & Output 06/13/16 06/14/16 06/14/16 22:59 06:59 14:59 Intake Total 1396 Output Total 1500 300 Balance -104 -300 Med Orders - Current: Current Medications Acetaminophen (Tylenol) 650 mg PO Q4H PRN PRN Reason: Pain (Mild 1-3)/fever Albuterol (Proventil Neb Soln) 2.5 mg NEB Q4HRRT PRN PRN Reason: sob Albuterol/Ipratropium (Duoneb 3.0-0.5 Mg/3 Ml) 3 ml NEB Q8HRRT [facility] Last Admin: 06/14/16 07:30 Dose: 3 ml Aspirin (Halfprin) 81 mg PO DAILY [facility] Last Admin: 06/14/16 10:11 Dose: 81 mg Budesonide (Pulmicort) 0.5 mg NEB BIDRT [facility] Last Admin: 06/14/16 07:30 Dose: 0.5 mg Bupropion HCl (Wellbutrin Xl) 450 mg PO DAILY [facility] Last Admin: 06/14/16 10:10 Dose: 450 mg Cholecalciferol (Vitamin D3) 1,000 units PO DAILY [facility] Last Admin: 06/14/16 10:11 Dose: 1,000 units Diltiazem HCl (Cardizem Cd) 120 mg PO DAILY [facility] Last Admin: 06/14/16 10:11 Dose: 120 mg Docusate Sodium (Colace) 100 mg PO BID PRN PRN Reason: Constipation Escitalopram Oxalate (Lexapro) 30 mg PO DAILY [facility] Last Admin: 06/14/16 10:11 Dose: 30 mg Heparin Sodium (Porcine) (Heparin Sodium) 5,000 units SUBCUT Q8HR [facility] Last Admin: 06/14/16 06:10 Dose: 5,000 units Azithromycin 500 mg/ Sodium (Chloride) 250 mls @ 250 mls/hr IV Q24H [facility] Last Admin: 06/13/16 15:31 Dose: 250 mls/hr Ceftriaxone Sodium 1 gm/ (Sodium Chloride) 50 mls @ 100 mls/hr IV Q24H [facility] Last Admin: 06/13/16 03:00 Dose: 100 mls/hr Levothyroxine Sodium (Synthroid) 50 mcg PO ACBRK [facility] Last Admin: 06/14/16 06:10 Dose: 50 mcg Levothyroxine Sodium (Levothyroxine) 300 mcg PO ACBRK [facility] Last Admin: 06/14/16 06:10 Dose: 300 mcg Lorazepam (Ativan) 1.5 mg PO BEDTIME [facility] Last Admin: 06/13/16 23:35 Dose: 1.5 mg Multivitamins/Minerals (Vitamins And Minerals) 1 tab PO DAILY [facility] Last Admin: 06/14/16 10:10 Dose: 1 tab Nitroglycerin (Nitrostat) 0.4 mg SL Q5M PRN PRN Reason: Chest Pain Non-Formulary Medication (Ipratropium [place]) 2 spray NS BID [facility]PL[facility] Olanzapine (Zyprexa) 5 mg PO DAILY [facility] Last Admin: 06/14/16 10:10 Dose: 5 mg Aripiprazole [ Abilify] 5 MgPt's Own Med 0 each PO DAILY [facility] Last Admin: 06/14/16 10:12 Dose: 1 each Prednisone (Prednisone) 40 mg PO WITHBREAKFAST REPLACED BY [facility] Stop: 06/15/16 21:00 Sodium Chloride (Saline Flush) 10 ml FLUSH ASDIRECTED PRN PRN Reason: Keep Vein Open Last Admin: 06/13/16 14:54 Dose: 10 ml Sodium Chloride ([place] Nasal [place]) 1 ml TENA BID PRN PRN Reason: dry nose Discontinued Medications Albuterol (Proventil Neb Soln) 2.5 mg NEB ONETIME ONE Stop: 06/11/16 12:37 Last Admin: 06/11/16 13:05 Dose: 2.5 mg Albuterol/Ipratropium (Duoneb 3.0-0.5 Mg/3 Ml) 3 ml NEB ONETIME ONE Stop: 06/11/16 12:17 Last Admin: 06/11/16 12:21 Dose: 3 ml Methylprednisolone Sodium Succinate (Solu-Medrol) 125 mg IVPUSH ONETIME [facility] Stop: 06/11/16 12:37 Last Admin: 06/11/16 13:08 Dose: 125 mg Methylprednisolone Sodium Succinate (Solu-Medrol) 40 mg IVPUSH Q8H [facility] Last Admin: 06/13/16 09:35 Dose: 40 mg Sodium Chloride (Saline Flush) 10 ml FLUSH ASDIRECTED PRN PRN Reason: Keep Vein Open - Exam General: alert, oriented, cooperative, no acute distress, other (he looks better ) HEENT: Pupils equal, Pupils reactive, EOMI, Mucous membr. moist/pink Neck: supple, trachea midline, no JVD Lungs: Decreased breath sounds (globally, with fair air exchange). No: Crackles , Rales, Rhonchi, Rub, Stridor, Wheezing Cardiovascular: Regular Rate, Regular Rhythm Abdomen: bowel sounds present, soft, no tenderness, no distension (Male) Exam: Deferred Back Exam: normal inspection, full range of motion Extremities: no edema, normal pulses, no tenderness/swelling, no clubbing, no cyanosis, no calf tenderness Skin: warm, dry, intact Neurological: no new focal deficit Psy/Mental Status: alert, normal affect, normal mood - Problem List Review Problem List Initiated/Reviewed/Updated: Yes - My Orders Last 24 Hours: My Active Orders 06/14/16 21:00 predniSONE 40 mg PO WITHBREAKFAST - Plan Plan:: Acute COPD exacerbation Continue with Pulmicort twice a day, scheduled DuoNeb, as needed albuterol nebulizer continue on oral prednisone, last does will be on 06/15/69 -change due to from every 8 hours to every 6 hours since he is still requiring supplemental oxygen. 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
[2016-06-14] MEDS: cefTRIAXone 1 GM in Sodium Chloride 0.9% 50 ML IV SCH (13:48)
[2016-06-14] MEDS: Azithromycin 500 MG in Sodium Chloride 0.9% 250 ML IV SCH (14:24)
[2016-06-14] MEDS: IPRATROPIUM BROMIDE 0.03% NAS SCH ×3 (17:06→20:46)
[2016-06-14] MEDS: predniSONE 20 MG Tab PO SCH (20:44)
[2016-06-14] MEDS: LORazepam 1 MG Tab PO SCH (23:07)
[2016-06-15] MEDS: Albuterol/Ipratropium 3.0-0.5 MG/3 ML Neb Soln NEB SCH ×2 (00:41→07:47)
[2016-06-15] MEDS: Heparin Sodium 5,000 Units/ML Vial SUBCUT SCH (06:15)
[2016-06-15] MEDS: Levothyroxine 150 MCG Tab PO SCH (06:15)
[2016-06-15] MEDS: Levothyroxine 50 MCG Tab PO SCH (06:16)
[2016-06-15] MEDS: Budesonide 0.5 MG/2 ML Neb Susp NEB SCH (07:47)
[2016-06-15] MEDS: predniSONE 20 MG Tab PO SCH (08:19)
[2016-06-15] MEDS: Diltiazem 120 MG Cap.CD PO SCH (08:20)
[2016-06-15] MEDS: Aspirin 81 MG Tab.EC PO SCH (08:22)
[2016-06-15] MEDS: Escitalopram 10 MG Tab PO SCH (08:22)
[2016-06-15] MEDS: Cholecalciferol (Vitamin D3) 400 Unit Tab PO SCH (08:23)
[2016-06-15] MEDS: Multivitamins, Therapeutic with Minerals Tab PO SCH (08:24)
[2016-06-15] MEDS: buPROPion 150 MG Tab.ER PO SCH (08:24)
[2016-06-15] MEDS: OLANZapine 5 MG Tab PO SCH (08:25)
[2016-06-15] MEDS: ARIPIPRAZOLE 5 MG PO SCH (08:26)
[2016-06-15] MEDS: IPRATROPIUM BROMIDE 0.03% NAS SCH (08:27)
[2016-06-15] MEDS: Azithromycin 500 MG in Sodium Chloride 0.9% 250 ML IV SCH (10:37)
--- NOTE | 2016-06-15 10:38 | PCM.DCSUM1 ---
Discharge Summary - Hospital Course Free Text/Narrative:: 60 y/o gentleman presented with a few months history of shortness of breath. This has been evaluated at [facility] by pulmonary medicine, cardiology. from cardiac point recommendation was to treat COPD, obstructive sleep apnea. He was scheduled for a PET scan in the near future. From cardiac point of the patient' s beta johanna was changed to Cardizem due to history of myocardial bridging. He was noted to have left ventricular hypertrophy, pulmonary hypertension. He was scheduled for an angiogram next week. The patient presented with 3 days of worsening, increased shortness of breath especially with activity. He reported wheezing and cough associated with green sputum. he denied fever. on admission chest x-ray showed no acute findings and laboratory workup showed WBC 8.8. hemoglobin 13.7. D-dimer is 394 which is within normal limits. Sodium 138. potassium 4.2. CRP 1.5. Creatinine 0.8. UA is unremarkable. He was started on Duoneb, systemic steroids, azithromycin, Rocephin, supplemental oxygen. he was requiring oxygen through yesterday. This morning his sats were 93% on resting and was 90% after walking in the hallway for 5 minutes. Patient is feeling much better and he feels his back is normal. He denies shortness of breath he is still having some cough with clear phlegm. plan of care during hospitalization: Acute COPD exacerbation Pulmicort twice a day, scheduled DuoNeb, as needed albuterol nebulizer prednisone, last does will be on 06/15/69 -Duoneb every 6 hours since he is still requiring supplemental oxygen. 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 Continue aspirin History of anxiety Continue Lexapro, Abilify, Zyprexa, Wellbutrin DVT prophylaxis with SQ heparin - Discharge Data Discharge Date: 06/15/16 Discharge Disposition: Home, Self-Care 01 Condition: Good - Discharge Diagnosis/Problem(s) (1) Bronchiectasis SNOMED Code(s): 00791848 ICD Code: J47.9 - BRONCHIECTASIS, UNCOMPLICATED Status: Acute Current Visit: Yes Qualifiers: Bronchiectasis type: with acute exacerbation Qualified Code(s): J47.1 - Bronchiectasis with (acute) exacerbation (2) COPD exacerbation SNOMED Code(s): 813717718, 528664947 ICD Code: J44.1 - CHRONIC OBSTRUCTIVE PULMONARY DISEASE W (ACUTE) EXACERBATION Status: Acute Current Visit: Yes (3) Hypoxia SNOMED Code(s): 798908849, 696490769 ICD Code: R09.02 - HYPOXEMIA Status: Resolved Current Visit: Yes (4) Contrast media allergy SNOMED Code(s): 108170453, 881362290 ICD Code: Z91.041 - RADIOGRAPHIC DYE ALLERGY STATUS Status: Chronic Current Visit: No - Patient Instructions Diet: Heart Healthy Diet Activity: As Tolerated Showering/Bathing: June Shower Notify Provider of: Fever - Discharge Plan Prescriptions/Med Rec: Amoxicillin/Potassium Clav [Augmentin 875-125 Tablet] 1 each PO BID #10 tablet Home Medications: Home Meds Levothyroxine [Synthroid] 350 mcg PO DAILY 02/15/15 [History] Acetaminophen [Tylenol Arthritis] 650 mg PO Q6H PRN 06/11/16 [History] Aspirin [Halfprin] 81 mg PO DAILY 06/11/16 [History] Cholecalciferol (Vitamin D3) [Vitamin D3] 1,000 units PO DAILY 06/11/16 [History ] Diltiazem [Cardizem CD] 120 mg PO DAILY 06/11/16 [History] Escitalopram [Lexapro] 30 mg PO DAILY 06/11/16 [History] Glucosamine HCl [Vegetarian Glucosamine] 2 tab PO DAILY 06/11/16 [History] Ipratropium [place] 2 spray NS BID 06/11/16 [History] Ipratropium/Albuterol Sulfate [Combivent Respimat Inhal [place]] 4 gm IH Q6H PRN 06/11/16 [History] LORazepam 1.5 mg PO BEDTIME 06/11/16 [History] Multivitamin with Minerals [Multiple Vitamin] 1 tab PO DAILY 06/11/16 [History] Nitroglycerin [Nitrostat] 1 tab SL ASDIRECTED PRN 06/11/16 [History] OLANZapine [Olanzapine] 5 mg PO DAILY 06/11/16 [History] [place]-3 Fatty Acids [Maxepa] 1 tab PO DAILY 06/11/16 [History] buPROPion HCl [Wellbutrin Xl] 450 mg PO DAILY 06/11/16 [History] ARIPiprazole [Abilify] 5 mg PO DAILY 06/12/16 [History] Amoxicillin/Potassium Clav [Augmentin 875-125 Tablet] 1 each PO BID #10 tablet 06/15/16 [Rx] Referrals: PCP,Unobtain [Primary Care Provider] - 06/22/16 - General Info Admission Dx/Problem (Free Text: Admission Diagnosis/Problem Admission Diagnosis/Problem COPD exacerbation - Review of Systems General: Reports: No Symptoms HEENT: Reports: no symptoms Pulmonary: Reports: cough. Denies: shortness of breath, pleuritic chest pain, hemoptysis, wheezing Cardiovascular: Reports: No Symptoms Gastrointestinal: Reports: No symptoms Genitourinary: Reports: no symptoms Musculoskeletal: Reports: no symptoms Skin: Reports: no symptoms Neurological: Reports: No Symptoms Psychiatric: Reports: no symptoms - Patient Data Vitals - Most Recent: Last Vital Signs Temp 36.3 C 06/15/16 07:49 Pulse 80 06/15/16 08:20 Resp 20 06/15/16 07:49 BP 134/80 06/15/16 08:20 Pulse Ox 93 L 06/15/16 10:11 Weight - Most Recent: 132.721 kg I&O - Last 24 hours: Intake & Output 06/14/16 06/15/16 06/15/16 22:59 06:59 14:59 Intake Total 255 300 440 Balance 255 300 440 Med Orders - Current: Current Medications Acetaminophen (Tylenol) 650 mg PO Q4H PRN PRN Reason: Pain (Mild 1-3)/fever Albuterol (Proventil Neb Soln) 2.5 mg NEB Q4HRRT PRN PRN Reason: sob Albuterol/Ipratropium (Duoneb 3.0-0.5 Mg/3 Ml) 3 ml NEB Q6HRRT [facility] Last Admin: 06/15/16 07:47 Dose: 3 ml Aspirin (Halfprin) 81 mg PO DAILY [facility] Last Admin: 06/15/16 08:22 Dose: 81 mg Budesonide (Pulmicort) 0.5 mg NEB BIDRT [facility] Last Admin: 06/15/16 07:47 Dose: 0.5 mg Bupropion HCl (Wellbutrin Xl) 450 mg PO DAILY [facility] Last Admin: 06/15/16 08:24 Dose: 450 mg Cholecalciferol (Vitamin D3) 1,000 units PO DAILY [facility] Last Admin: 06/15/16 08:23 Dose: 1,000 units Diltiazem HCl (Cardizem Cd) 120 mg PO DAILY [facility] Last Admin: 06/15/16 08:20 Dose: 120 mg Docusate Sodium (Colace) 100 mg PO BID PRN PRN Reason: Constipation Escitalopram Oxalate (Lexapro) 30 mg PO DAILY [facility] Last Admin: 06/15/16 08:22 Dose: 30 mg Heparin Sodium (Porcine) (Heparin Sodium) 5,000 units SUBCUT Q8HR [facility] Last Admin: 06/15/16 06:15 Dose: 5,000 units Azithromycin 500 mg/ Sodium (Chloride) 250 mls @ 250 mls/hr IV Q24H [facility] Last Admin: 06/14/16 14:24 Dose: 250 mls/hr Ceftriaxone Sodium 1 gm/ (Sodium Chloride) 50 mls @ 100 mls/hr IV Q24H [facility] Last Admin: 06/14/16 13:48 Dose: 100 mls/hr Levothyroxine Sodium (Synthroid) 50 mcg PO ACBRK [facility] Last Admin: 06/15/16 06:16 Dose: 50 mcg Levothyroxine Sodium (Levothyroxine) 300 mcg PO ACBRK [facility] Last Admin: 06/15/16 06:15 Dose: 300 mcg Lorazepam (Ativan) 1.5 mg PO BEDTIME [facility] Last Admin: 06/14/16 23:07 Dose: 1.5 mg Multivitamins/Minerals (Vitamins And Minerals) 1 tab PO DAILY [facility] Last Admin: 06/15/16 08:24 Dose: 1 tab Nitroglycerin (Nitrostat) 0.4 mg SL Q5M PRN PRN Reason: Chest Pain Olanzapine (Zyprexa) 5 mg PO DAILY [facility] Last Admin: 06/15/16 08:25 Dose: 5 mg Aripiprazole [ Abilify] 5 MgPt's Own Med 0 each PO DAILY [facility] Last Admin: 06/15/16 08:26 Dose: 1 each Ipratropium [place] (0.03%Pt's Own Med) 0 each TENA BID [facility] Last Admin: 06/15/16 08:27 Dose: 1 each Prednisone (Prednisone) 40 mg PO WITHBREAKFAST [facility] Stop: 06/15/16 21:00 Last Admin: 06/15/16 08:19 Dose: 40 mg Sodium Chloride (Saline Flush) 10 ml FLUSH ASDIRECTED PRN PRN Reason: Keep Vein Open Last Admin: 06/13/16 14:54 Dose: 10 ml Sodium Chloride ([place] Nasal [place]) 1 ml TENA BID PRN PRN Reason: dry nose Discontinued Medications Albuterol (Proventil Neb Soln) 2.5 mg NEB ONETIME ONE Stop: 06/11/16 12:37 Last Admin: 06/11/16 13:05 Dose: 2.5 mg Albuterol/Ipratropium (Duoneb 3.0-0.5 Mg/3 Ml) 3 ml NEB ONETIME ONE Stop: 06/11/16 12:17 Last Admin: 06/11/16 12:21 Dose: 3 ml Albuterol/Ipratropium (Duoneb 3.0-0.5 Mg/3 Ml) 3 ml NEB Q8HRRT [facility] Last Admin: 06/14/16 07:30 Dose: 3 ml Methylprednisolone Sodium Succinate (Solu-Medrol) 125 mg IVPUSH ONETIME ONE Stop: 06/11/16 12:37 Last Admin: 06/11/16 13:08 Dose: 125 mg Methylprednisolone Sodium Succinate (Solu-Medrol) 40 mg IVPUSH Q8H [facility] Last Admin: 06/13/16 09:35 Dose: 40 mg Sodium Chloride (Saline Flush) 10 ml FLUSH ASDIRECTED PRN PRN Reason: Keep Vein Open - Exam General: Reports: alert, oriented, cooperative. Denies: no acute distress, mild distress, moderate distress, severe distress, sedated, lethargic, obtunded HEENT: Reports: Pupils equal, Pupils reactive, EOMI, Mucous membr. moist/pink Neck: Reports: supple, trachea midline, no JVD Lungs: Reports: Clear to auscultation, Normal respiratory effort. Denies: Crackles, Rales, Rhonchi, Rub, Stridor, Wheezing Cardiovascular: Reports: Regular Rate, Regular Rhythm Abdomen: Reports: bowel sounds present, soft, no tenderness, no distension (Male) Exam: Deferred Rectal (Males) Exam: Deferred Back Exam: Reports: normal inspection, full range of motion Extremities: Reports: no edema, normal pulses, no tenderness/swelling, no clubbing, no cyanosis, no calf tenderness Skin: Reports: warm, intact Neurological: Reports: no new focal deficit Psy/Mental Status: Reports: alert, normal affect, normal mood. Denies: suicidal ideation, homicidal ideation, hallucinations, withdrawal symptoms *Q Meaningful Use (DIS) - VTE *Q VTE Criteria *Q: - Stroke *Q Stroke Criteria *Q: - AMI *Q AMI Criteria *Q:
[2016-06-15] MEDS: Sodium Chloride 0.9% 10 ML Syringe FLUSH PRN ×3 (10:39→12:31)
[2016-06-15 11:29] VITALS: BP 132/78
[2016-06-15] MEDS: cefTRIAXone 1 GM in Sodium Chloride 0.9% 50 ML IV SCH (11:54)
--- NOTE | 2016-07-04 11:30 | EKG ---
06/11/2016- HOLLAND GAY - EKG per my reading shows sinus rhythm at a rate of [address] changes[address] [facility] /[id number]
== END 2016-06-15 12:58 | disposition home or self-care (01) | DRG 140 ==
LOC: DL.ED 11:46 → DL.MS 13:56 → UNDOADMIN 13:56 → DL.MS 14:35
PROVIDERS: ADMIT Internal Medicine; ATTEND Internal Medicine
DX: J44.0 Chronic obstructive pulmonary disease with (acute) lower respiratory infection (principal); J18.9 Pneumonia, unspecified organism; J44.1 Chronic obstructive pulmonary disease with (acute) exacerbation; G47.33 Obstructive sleep apnea (adult) (pediatric); I25.10 Atherosclerotic heart disease of native coronary artery without angina pectoris; F41.9 Anxiety disorder, unspecified; R09.02 Hypoxemia; Z91.041 Radiographic dye allergy status; I27.2 Other secondary pulmonary hypertension; E03.9 Hypothyroidism, unspecified; E78.5 Hyperlipidemia, unspecified; Z87.891 Personal history of nicotine dependence
CPT/HCPCS: 36415; 71020; 80048; 80053; 81001; 83605; 83880; 84484; 85025; 85379; 86140; 87040; 87070; 87205; 93005; 94010; 94640; 96374; 99285; A9270-GY; J0456; J0696; J1644; J2920; J2930; J7050; J7620-GY

== ENCOUNTER 2016-07-15 17:28 | Emergency (ER) | payer BC ==
[2016-07-15 17:39] VITALS: BP 164/86
--- NOTE | 2016-07-15 17:46 | EDM.PDOC ---
[id number] 4d THUMB PROBLEMS, [id number] Time Seen by Provider: 07/15/16 17:40 Source of Information: Reports: Patient, RN, RN Notes Reviewed History Limitations: Reports: No Limitations - History of Present Illness INITIAL COMMENTS - FREE TEXT/NARRATIVE: Complaining of left thumb injury just [employer] when the thumb got stuck in the fan/ fan motor of his air compressor. Denies any other injury. Tetanus vaccine 3 years ago. Quality: Reports: Ache Severity: Severe Improves with: Reports: None Worsens with: Reports: None Associated Symptoms: Reports: No Other Symptoms Left Hand Pain Score (Numeric/FACES): 8 - Related Data Allergies Allergy/AdvReac Type Severity Reaction Status Date / Time atorvastatin calcium Allergy Muscle Verified 07/15/16 17:39 [From Lipitor] Aches codeine Allergy Nausea and Verified 07/15/16 17:39 Vomiting Iodinated Contrast Media - Allergy Swelling Verified 07/15/16 17:39 Oral and rosuvastatin calcium Allergy Muscle Verified 07/15/16 17:39 [From Crestor] Aches simvastatin [From Zocor] Allergy Muscle Verified 07/15/16 17:39 Aches Home Meds: Home Meds Levothyroxine [Synthroid] 350 mcg PO DAILY 02/15/15 [History] Acetaminophen [Tylenol Arthritis] 1,950 mg PO Q6H PRN 06/11/16 [History] Aspirin [Halfprin] 81 mg PO DAILY 06/11/16 [History] Cholecalciferol (Vitamin D3) [Vitamin D3] 1,000 units PO DAILY 06/11/16 [History ] Diltiazem [Cardizem CD] 120 mg PO DAILY 06/11/16 [History] Escitalopram [Lexapro] 30 mg PO DAILY 06/11/16 [History] Glucosamine HCl [Vegetarian Glucosamine] 2 tab PO DAILY 06/11/16 [History] Ipratropium [place] 2 spray NS BID 06/11/16 [History] Ipratropium/Albuterol Sulfate [Combivent Respimat Inhal [place]] 4 gm IH Q6H PRN 06/11/16 [History] LORazepam 1.5 mg PO BEDTIME 06/11/16 [History] Multivitamin with Minerals [Multiple Vitamin] 1 tab PO DAILY 06/11/16 [History] Nitroglycerin [Nitrostat] 1 tab SL ASDIRECTED PRN 06/11/16 [History] OLANZapine [Olanzapine] 5 mg PO DAILY 06/11/16 [History] [place]-3 Fatty Acids [Maxepa] 1 tab PO DAILY 06/11/16 [History] buPROPion HCl [Wellbutrin Xl] 450 mg PO DAILY 06/11/16 [History] ARIPiprazole [Abilify] 5 mg PO DAILY 06/12/16 [History] Past Medical History HEENT History: Reports: Cataract Cardiovascular History: Reports: CAD, High Cholesterol, Hypertension, Other ( See Below) Other Cardiovascular History: scheduled for angiogram Jun 20 2016 Respiratory History: Reports: Asthma, COPD, Sleep Apnea Other Genitourinary History: prostate surgery in 08-13-2008 Psychiatric History: Reports: Addiction, Anxiety, Depression Endocrine/Metabolic History: Reports: Hypothyroidism, Obesity/BMI 30+ Oncologic (Cancer) History: Reports: Prostate - Past Surgical History GI Surgical History: Reports: Colonoscopy, EGD, Hernia, Abdominal Musculoskeletal Surgical History: Reports: Arthroscopic Procedure, Hip Replacement Social & Family History - Family History Family Medical History: Noncontributory - Tobacco Use Smoking Status *Q: Former Smoker Years of Tobacco use: 40 Used Tobacco, but Quit: Yes Month Tobacco Last Used: 12 - Caffeine Use Caffeine Use: Reports: Coffee - Recreational Drug Use Recreational Drug Use: No - Living Situation & Occupation Living situation: Reports: with Family Occupation: Employed ED ROS GENERAL - Review of Systems Review Of Systems: ROS reveals no pertinent complaints other than HPI. ED EXAM, SKIN/RASH Exam: See Below Exam Limited By: No Limitations General Appearance: Obese Respiratory/Chest: No Respiratory Distress, Lungs Clear, Normal Breath Sounds, No Accessory Muscle Use, Chest Non-Tender Cardiovascular: Normal Peripheral Pulses (to bilateral upper extremities.) Back Exam: Normal Inspection Extremities: Other (left thumb with 2.5cm distal laceration with soft tissue avulsion and partial nail avulsion, irregular laceration to depth of muscle. ) Neurological: Alert, Oriented, CN II-XII Intact, Normal Cognition, Normal Gait, Normal Reflexes, No Motor/Sensory Deficits Psychiatric: Normal Affect, Normal Mood ED SKIN PROCEDURES - Laceration/Wound Repair Left Distal Finger Lac/wound length in cm: 2.5 (left distal thumb) Appearance: Muscle, Irregular, Mildly Contaminated Distal NVT: Neuro & Vascular Intact, No Tendon Injury Anesthetic Type: Digital Local Anesthesia - Lidocaine (Xylocaine): 1% Plain Local Anesthetic Volume: 5cc Skin Prep: Chlorhexidine (Hibiciens), Saline Saline irrigation (cc's): 1,000 Exploration/Debridement/Repair: Wound Explored, in a Bloodless Field, Explored to Base, Moderate Debridement, Minimally Undermined, Foreign Material Removed, Multiple Flaps Aligned Closed with: Sutures Suture Size: 4-0 (9) # of Sutures: 9 Suture Type: Nylon, Interrupted, Mattress Drain Placement: No Sterile Dressing Applied: Nurse Tetanus Status Addressed: Yes Complications: No Progress/Comments: Soft tissue avulsion area covered by Surgicel. Course - Vital Signs Last Recorded V/S: Last Vital Signs Temp 36.3 C 07/15/16 17:37 Pulse 82 07/15/16 17:37 Resp 18 07/15/16 17:37 BP 164/86 H 07/15/16 17:37 Pulse Ox 93 L 07/15/16 17:37 - Orders/Labs/Meds Meds: Medications Discontinued Medications Generic Name Dose Route Start Last Admin Trade Name Long PRN Reason Stop Dose Admin Hydrocodone Bitart/Acetaminophen Confirm 07/15/16 19:01 07/15/16 19:04 Mcgrath 325-10 Mg Administered 07/15/16 19:02 4 tab Dose Administration 4 tab .ROUTE .STK-MED ONE Cephalexin 500 mg 07/15/16 18:46 07/15/16 19:04 Keflex PO 07/15/16 18:47 500 mg ONETIME ONE Administration Lidocaine HCl 30 ml 07/15/16 17:47 07/15/16 18:06 Xylocaine-Mpf 1% INJECT 07/15/16 17:48 30 ml ONETIME ONE Administration - Radiology Interpretation Free Text/Narrative:: X-ray left finger: Per rad report soft tissue injury. No fracture. Departure - Departure Time of Disposition: 18:46 Disposition: Home, Self-Care 01 Condition: good Clinical Impression: Soft tissue avulsion Laceration of thumb, left Qualifiers: Encounter type: initial encounter Damage to nail status: with damage Foreign body presence: without foreign body Qualified Code(s): S61.112A - Laceration without foreign body of left thumb with damage to nail, initial encounter - Discharge Information Instructions: Laceration Care, Adult, [id number], Deep Skin Avulsion Referrals: PCP,None [Ordering Only Provider] - Forms: ED Department Discharge Additional Instructions: RX: Cephalexin 500mg. Vicodin 10mg/325mg. Follow up in clinic on Sunday or Sunday with your primary doctor for wound recheck. Return to ER if any signs of infection develop.
[2016-07-15] MEDS ORDERED: Lidocaine 1% 30 ML SDV INJECT ONE (17:47)
[2016-07-15] MEDS ORDERED: Cephalexin 500 MG Cap PO ONE (18:46)
[2016-07-15] MEDS ORDERED: Acetaminophen/HYDROcodone 325-10 MG Tab ONE (19:01)
== END 2016-07-15 19:19 | disposition home or self-care (01) ==
LOC: DL.ED 17:28
DX: S61.121A Laceration with foreign body of right thumb with damage to nail, initial encounter (principal); E03.9 Hypothyroidism, unspecified; J44.9 Chronic obstructive pulmonary disease, unspecified; J45.909 Unspecified asthma, uncomplicated; Z98.890 Other specified postprocedural states; Z96.649 Presence of unspecified artificial hip joint; Z87.891 Personal history of nicotine dependence; Z88.5 Allergy status to narcotic agent; Z79.82 Long term (current) use of aspirin; Z79.899 Other long term (current) drug therapy; W22.8XXA Striking against or struck by other objects, initial encounter
CPT/HCPCS: 12001; 73140; 99283; A9270

== ENCOUNTER 2018-05-12 14:53 | Emergency (ER) | payer BC ==
[2018-05-12 14:57] VITALS: BP 147/72
[2018-05-12] MEDS ORDERED: Sodium Chloride 0.9% 10 ML Syringe FLUSH PRN (15:07)
[2018-05-12] MEDS ORDERED: Albuterol/Ipratropium 3.0-0.5 MG/3 ML Neb Soln NEB ONE (15:08)
[2018-05-12] MEDS ORDERED: methylPREDNISolone Sodium Succinate 125 MG/2 ML SDV IVPUSH ONE (15:09)
[2018-05-12 15:31] LABS: CHLORIDE,CL 101 mmol/L (101-111); SODIUM,NA 136 mmol/L (135-145)
--- NOTE | 2018-05-12 16:07 | EDM.PDOC ---
Scribed by Masha Gongora 05/12/18 1534 for Rebekah Montgomery MD ED HPI GENERAL MEDICAL PROBLEM - General Chief Complaint: Respiratory Problem Stated Complaint: COUGH [id number] Time Seen by Provider: 05/12/18 14:57 Source of Information: Reports: Patient, RN, RN Notes Reviewed History Limitations: Reports: No Limitations - History of Present Illness INITIAL COMMENTS - FREE TEXT/NARRATIVE: Patient presents to ER with a cough and mild shortness of breath for the past 2 to 3 days. He denies fever, chills, chest pain, edema, N/V, aspiration, or orthopnea. Pt admits to productive cough with green sputum. He has been using his nebulizer tx's a couple of times a day. He last neb. tx was last evening. He is not sure of the name of the medications he puts into his nebulizer. Pt report Hx of COPD/Emphysema. Onset: Gradual Duration: Day(s): (2-3), Constant Location: Reports: Chest Quality: Reports: Other (Denies pain) Severity: Moderate Improves with: Reports: None Worsens with: Reports: None Associated Symptoms: Reports: No Other Symptoms Treatments MANAGER PHILOSOPHY: Reports: Breathing Treatments, Other (see below) - Related Data Allergies Allergy/AdvReac Type Severity Reaction Status Date / Time atorvastatin calcium Allergy Muscle Verified 05/12/18 14:55 [From Lipitor] Aches codeine Allergy Nausea and Verified 05/12/18 14:55 Vomiting Iodinated Contrast- Oral and Allergy Swelling Verified 05/12/18 14:55 IV Dye rosuvastatin calcium Allergy Muscle Verified 05/12/18 14:55 [From Crestor] Aches simvastatin [From Zocor] Allergy Muscle Verified 05/12/18 14:55 Aches Home Meds: Home Meds Levothyroxine [Synthroid] 350 mcg PO DAILY 02/15/15 [History] Acetaminophen [Tylenol Arthritis] 1,950 mg PO Q6H PRN 06/11/16 [History] Aspirin [Halfprin] 81 mg PO DAILY 06/11/16 [History] Cholecalciferol (Vitamin D3) [Vitamin D3] 1,000 units PO DAILY 06/11/16 [History ] Diltiazem [Cardizem CD] 120 mg PO DAILY 06/11/16 [History] Escitalopram [Lexapro] 30 mg PO DAILY 06/11/16 [History] Glucosamine HCl [Vegetarian Glucosamine] 2 tab PO DAILY 06/11/16 [History] Ipratropium [place] 2 spray NS BID 06/11/16 [History] Ipratropium/Albuterol Sulfate [Combivent Respimat 20-100 Mcg] 4 gm IH Q6H PRN [History] LORazepam 1.5 mg PO BEDTIME 06/11/16 [History] Multivitamin with Minerals [Multiple Vitamin] 1 tab PO DAILY 06/11/16 [History] Nitroglycerin [Nitrostat] 1 tab SL ASDIRECTED PRN 06/11/16 [History] OLANZapine [Olanzapine] 5 mg PO DAILY 06/11/16 [History] [place]-3 Fatty Acids [Maxepa] 1 tab PO DAILY 06/11/16 [History] buPROPion HCl [Wellbutrin Xl] 450 mg PO DAILY 06/11/16 [History] ARIPiprazole [Abilify] 5 mg PO DAILY 06/12/16 [History] Past Medical History HEENT History: Reports: Cataract Other HEENT History: wears glasses Cardiovascular History: Reports: CAD, High Cholesterol, Hypertension, Other ( See Below) Other Cardiovascular History: scheduled for angiogram Jun 20 2016 Respiratory History: Reports: Asthma, COPD, Sleep Apnea Other Genitourinary History: prostate surgery in 08-13-2008 Neurological History: Reports: None Psychiatric History: Reports: Addiction, Anxiety, Depression Endocrine/Metabolic History: Reports: Hypothyroidism, Obesity/BMI 30+ Hematologic History: Reports: None Immunologic History: Reports: None Oncologic (Cancer) History: Reports: Prostate Dermatologic History: Reports: None - Infectious Disease History Infectious Disease History: Reports: Chicken Pox, Measles, Mumps - Past Surgical History GI Surgical History: Reports: Colonoscopy, EGD, Hernia, Abdominal Musculoskeletal Surgical History: Reports: Arthroscopic Procedure, Hip Replacement Social & Family History - Family History Family Medical History: Noncontributory - Caffeine Use Caffeine Use: Reports: Coffee - Living Situation & Occupation Living situation: Reports: with Family Occupation: Employed ED ROS GENERAL - Review of Systems Review Of Systems: ROS reveals no pertinent complaints other than HPI. ED EXAM, GENERAL - Physical Exam Exam: See Below Exam Limited By: No Limitations General Appearance: Alert, No Apparent Distress, Obese, Other (Non-toxic appearing) Ears: Hearing Grossly Normal Nose: Normal Inspection, Normal Mucosa, No Blood Throat/Mouth: Normal Inspection, Normal Lips, Normal Teeth, Normal Gums, Normal Oropharynx, Normal Voice, No Airway Compromise Head: Atraumatic, Normocephalic Neck: Normal Inspection, Supple, Non-Tender, Full Range of Motion Respiratory/Chest: No Respiratory Distress, No Accessory Muscle Use, Chest Non- Tender, Decreased Breath Sounds, Crackles, Prolonged Expiration. No: Rales, Rhonchi, Wheezing, Pleural Rub Cardiovascular: Normal Peripheral Pulses, Regular Rate, Rhythm, No Gallop, No JVD, No Murmur, No Rub GI/Abdominal: Normal Bowel Sounds, Soft, Non-Tender, No Distention Back Exam: Normal Inspection Extremities: Normal Range of Motion, Non-Tender, Normal Capillary Refill, Pedal Edema (Trace B/L to distal shins) Neurological: Alert, Oriented, CN II-XII Intact, Normal Cognition, Normal Gait, No Motor/Sensory Deficits Psychiatric: Normal Affect, Normal Mood Skin Exam: Warm, Dry, Intact, Normal Color, No Rash Course - Vital Signs Last Recorded V/S: Last Vital Signs Temp 35.9 C 05/12/18 14:55 Pulse 80 05/12/18 14:55 Resp 18 05/12/18 14:55 BP 147/72 H 05/12/18 14:55 Pulse Ox 96 05/12/18 15:09 - Orders/Labs/Meds Orders: Active Orders 24 hr Category Date Time Status Peripheral IV Care [RC] . DIRECTED Care 05/12/18 15:08 Active RT Aerosol Therapy [RC] ASDIRECTED Care 05/12/18 15:09 Active Chest 2V [CR] Stat Exams 05/12/18 15:07 Taken Sodium Chloride 0.9% [Saline Flush] Med 05/12/18 15:07 Active 10 ml FLUSH ASDIRECTED PRN Peripheral IV Insertion Adult [OM.PC] Stat Oth 05/12/18 15:07 Ordered Medication Orders Sodium Chloride (Saline Flush) 10 ml FLUSH ASDIRECTED PRN PRN Reason: Keep Vein Open Last Admin: 05/12/18 15:09 Dose: 10 ml Labs: Laboratory Tests 05/12/18 05/12/18 Range/Units 15:06 15:06 WBC 9.2 (5.0-10.0) 10^3/uL RBC 5.23 (4.6-6.2) 10^6/uL Hgb 14.7 (14.0-18.0) g/dL Hct 44.7 (40.0-54.0) % MCV 85.5 D (80-100) fL MCH 28.1 (27.0-34.0) pg MCHC 32.9 L (33.0-35.0) g/dL Plt Count 268 (150-450) 10^3/uL Neut % (Auto) 70.2 (42.2-75.2) % Lymph % (Auto) 20.5 (20.5-50.1) % [place] % (Auto) 6.0 (2-8) % Eos % (Auto) 2.8 (1.0-3.0) % Baso % (Auto) 0.5 (0.0-1.0) % Sodium 136 (135-145) mmol/L Potassium 4.0 (3.6-5.0) mmol/L Chloride 101 (101-111) mmol/L Carbon Dioxide 23.0 (21.0-31.0) mmol/L Anion Gap 16.0 BUN 12 (7-18) mg/dL Creatinine 0.8 (0.6-1.3) mg/dL Est Cr Clr Drug Dosing 99.35 mL/min Estimated GFR (MDRD) > 60 BUN/Creatinine Ratio 15.00 Glucose 185 H (74-105) mg/dL Calcium 8.7 (8.4-10.2) mg/dl Total Bilirubin 0.8 (0.2-1.0) mg/dL AST 20 (10-42) IU/L ALT 18 (10-60) IU/L Alkaline Phosphatase 103 (42-121) IU/L B-Natriuretic Peptide 21 (0-100) pg/ml Total Protein 7.3 (6.7-8.2) g/dl Albumin 3.9 (3.2-5.5) g/dl Globulin 3.4 Albumin/Globulin Ratio 1.15 Meds: Medications Generic Name Dose Route Start Last Admin Trade Name Freq PRN Reason Stop Dose Admin Sodium Chloride 10 ml 05/12/18 15:07 05/12/18 15:09 Saline Flush FLUSH 10 ml ASDIRECTED PRN Administration Keep Vein Open Discontinued Medications Generic Name Dose Route Start Last Admin Trade Name Long PRN Reason Stop Dose Admin Albuterol/Ipratropium 3 ml 05/12/18 15:08 05/12/18 15:15 Duoneb 3.0-0.5 Mg/3 Ml NEB 05/12/18 15:09 3 ml ONETIME ONE Administration Methylprednisolone Sodium Succinate 125 mg 05/12/18 15:09 05/12/18 15:42 Solu-Medrol IVPUSH 05/12/18 15:10 125 mg ONETIME ONE Administration - Radiology Interpretation Free Text/Narrative:: [facility] Final Radiology Report Call: [phone] assistance Online chat: [email or web address] Name: HOLLAND GAY Age: 62Years M Date: 05/12/2018 SSN: -- : [id number] Study: XR CHEST 2 VIEWS Requesting Physician: REBEKAH MONTGOMERY Images: 2 Addl Studies: Provided Clinical History: Contrast: Contrast Medium: Contrast Amount: Contrast Method: CONFIDENTIALITY STATEMENT This report is intended only for use by the referring physician, and only in accordance with law. If you received this in error, call [phone]. Page 1 of 1 EXAM: XR Chest, 2 Views EXAM DATE/TIME: 05/12/2018 3:23 PM CLINICAL HISTORY: 62 years old, male; Signs and symptoms; Cough and dyspnea TECHNIQUE: Imaging protocol: XR of the chest, 2 views. COMPARISON: CR Chest 2V 06/11/2016 12:37 PM FINDINGS: Lungs: Unremarkable. No consolidation. Pleural space: Unremarkable. No pleural effusion. No pneumothorax. Heart/Mediastinum: Unremarkable. No cardiomegaly. Bones/joints: Unremarkable. IMPRESSION: No acute findings. Thank you for allowing us to participate in the care of your patient. Dictated and Authenticated by: Rustam Peralta MD 05/12/2018 3:49 PM Central Time ([place] & [place]) - Re-Assessments/Exams Free Text/Narrative Re-Assessment/Exam: 05/12/18 15:59 Pt has been afebrile, O2 sats >92%, and has not been using his nebulizer tx's on a regular basis. I think he is reasonable to be d/c'd home with Levaquin, prednisone, scheduled duoneb tx's, and close f/u in clinic. Pt is aware of the signs and symptoms which should prompt him to return to the ER. Departure - Departure Time of Disposition: 16:03 Disposition: Home, Self-Care 01 Condition: Good Clinical Impression: Acute exacerbation of chronic obstructive pulmonary disease (COPD) - Discharge Information *PRESCRIPTION DRUG MONITORING PROGRAM REVIEWED*: No *COPY OF PRESCRIPTION DRUG MONITORING REPORT IN PATIENT TEJAL: No Instructions: Chronic Obstructive Pulmonary Disease Exacerbation Forms: ED Department Discharge Additional Instructions: Rx: Levaquin 750mg Rx: Prednisone 20mg Rx: DuoNeb Solution 2.5mg/0.5mg Follow up in clinic in 3 to 4 days for recheck. Return to ER if worse at any time. - My Orders Last 24 Hours: My Active Orders 05/12/18 15:07 Chest 2V [CR] Stat Sodium Chloride 0.9% [Saline Flush] 10 ml FLUSH ASDIRECTED PRN Peripheral IV Insertion Adult [OM.PC] Stat 05/12/18 15:08 Peripheral IV Care [RC] . DIRECTED 05/12/18 15:09 RT Aerosol Therapy [RC] ASDIRECTED - Assessment/Plan Last 24 Hours: My Active Orders 05/12/18 15:07 Chest 2V [CR] Stat Sodium Chloride 0.9% [Saline Flush] 10 ml FLUSH ASDIRECTED PRN Peripheral IV Insertion Adult [OM.PC] Stat 05/12/18 15:08 Peripheral IV Care [RC] . DIRECTED 05/12/18 15:09 RT Aerosol Therapy [RC] ASDIRECTED I have read and agree with the documentation that has been completed regarding this visit. By signing this record, I attest that the documentation was completed in my physical presence and is an accurate record of the encounter.
== END 2018-05-12 16:15 | disposition home or self-care (01) ==
LOC: DL.ED 14:53
DX: J44.1 Chronic obstructive pulmonary disease with (acute) exacerbation (principal); I25.10 Atherosclerotic heart disease of native coronary artery without angina pectoris; E78.00 Pure hypercholesterolemia, unspecified; I10 Essential (primary) hypertension; F41.9 Anxiety disorder, unspecified; F32.9 Major depressive disorder, single episode, unspecified; E03.9 Hypothyroidism, unspecified; Z88.8 Allergy status to other drugs, medicaments and biological substances; Z88.5 Allergy status to narcotic agent; Z79.82 Long term (current) use of aspirin; Z79.899 Other long term (current) drug therapy
CPT/HCPCS: 36415; 71046; 80053; 83880; 85025; 94640; 96374; 99284; J2930; J7620-GY

== ENCOUNTER 2018-10-03 12:59 | Emergency (ER) | payer BC ==
[2018-10-03] MEDS ORDERED: Sodium Chloride 0.9% 10 ML Syringe FLUSH PRN (13:06)
--- NOTE | 2018-10-03 13:11 | EDM.PDOC ---
ED HPI GENERAL MEDICAL PROBLEM - General Stated Complaint: STIFFNESS IN LEFT ARM/LEG Time Seen by Provider: 10/03/18 13:07 Source of Information: Reports: Patient, RN, RN Notes Reviewed History Limitations: Reports: Physical Impairment - History of Present Illness INITIAL COMMENTS - FREE TEXT/NARRATIVE: Pt to ER with c/o left sided (arm and leg) weakness, stiffness. Patient states this began about 1130 this morning. Pt is alert and oriented. States he awoke at 0900 and did not notice anything different. States he laid in bed for a while. At 1130 he attempted to get out of bed and the left arm and left leg were very heavy and he was unable to use them. Got himself to the bathroom and took a shower, but fell in the shower and had difficulty getting up. Drove himself to the fire department where he was to have a meeting and had the fire truck driver drive him to the ER. Upon arrival patient denies visual disturbance, and speech is normal. States he feels the left arm and leg and very heavy, left arm feels like it is not even attached. Patient states he has not taken his BP meds for the past couple of days. Admits to hx of COPD, Pulmonary HTN, high cholesterol and HTN. Denies hx of stroke or [place]. States he is prediabetic. NIH score 5-6. Onset: Today, Sudden - Related Data Allergies Allergy/AdvReac Type Severity Reaction Status Date / Time atorvastatin calcium Allergy Muscle Verified 10/03/18 13:34 [From Lipitor] Aches codeine Allergy Nausea and Verified 10/03/18 13:34 Vomiting Iodinated Contrast Media Allergy Swelling Verified 10/03/18 13:34 rosuvastatin calcium Allergy Muscle Verified 10/03/18 13:34 [From Crestor] Aches simvastatin [From Zocor] Allergy Muscle Verified 10/03/18 13:34 Aches Home Meds: Home Meds Levothyroxine [Synthroid] 350 mcg PO DAILY 02/15/15 [History] Acetaminophen [Tylenol Arthritis] 1,950 mg PO Q6H PRN 06/11/16 [History] Aspirin [Halfprin] 81 mg PO DAILY 06/11/16 [History] Cholecalciferol (Vitamin D3) [Vitamin D3] 1,000 units PO DAILY 06/11/16 [History ] Diltiazem [Cardizem CD] 120 mg PO DAILY 06/11/16 [History] Escitalopram [Lexapro] 30 mg PO DAILY 06/11/16 [History] Glucosamine HCl [Vegetarian Glucosamine] 2 tab PO DAILY 06/11/16 [History] Ipratropium [place] 2 spray NS BID 06/11/16 [History] Ipratropium/Albuterol Sulfate [Combivent Respimat 20-100 Mcg] 4 gm IH Q6H PRN [History] LORazepam 1.5 mg PO BEDTIME 06/11/16 [History] Multivitamin with Minerals [Multiple Vitamin] 1 tab PO DAILY 06/11/16 [History] Nitroglycerin [Nitrostat] 1 tab SL ASDIRECTED PRN 06/11/16 [History] OLANZapine [Olanzapine] 5 mg PO DAILY 06/11/16 [History] [place]-3 Fatty Acids [Maxepa] 1 tab PO DAILY 06/11/16 [History] buPROPion HCl [Wellbutrin Xl] 450 mg PO DAILY 06/11/16 [History] ARIPiprazole [Abilify] 5 mg PO DAILY 06/12/16 [History] Past Medical History HEENT History: Reports: Cataract Other HEENT History: wears glasses Cardiovascular History: Reports: CAD, High Cholesterol, Hypertension, Other ( See Below) Other Cardiovascular History: scheduled for angiogram Jun 20 2016 Respiratory History: Reports: Asthma, COPD, Sleep Apnea Genitourinary History: Reports: Prostate Disorder Other Genitourinary History: prostate surgery in 08-13-2008 Neurological History: Reports: None Psychiatric History: Reports: Addiction, Anxiety, Depression Endocrine/Metabolic History: Reports: Hypothyroidism, Obesity/BMI 30+ Hematologic History: Reports: None Immunologic History: Reports: None Oncologic (Cancer) History: Reports: Prostate Dermatologic History: Reports: None - Infectious Disease History Infectious Disease History: Reports: Chicken Pox, Measles, Mumps - Past Surgical History GI Surgical History: Reports: Colonoscopy, EGD, Hernia, Abdominal Musculoskeletal Surgical History: Reports: Arthroscopic Procedure, Hip Replacement Social & Family History - Family History Family Medical History: Noncontributory - Caffeine Use Caffeine Use: Reports: Coffee - Living Situation & Occupation Living situation: Reports: with Family Occupation: Employed ED ROS GENERAL - Review of Systems Review Of Systems: ROS reveals no pertinent complaints other than HPI. ED EXAM, NEURO - Physical Exam Exam: See Below Exam Limited By: Physical Impairment General Appearance: Alert, WD/WN, No Apparent Distress Eye Exam: Bilateral Eye: EOMI, Normal Inspection, PERRL (4 brisk) Ears: Normal External Exam, Normal Canal, Hearing Grossly Normal, Other (TM dull with fluid bilaterally) Nose: Normal Inspection Throat/Mouth: Normal Inspection, Normal Voice, No Airway Compromise Head Exam: Atraumatic, Normocephalic Neck: Normal Inspection, Supple, Non-Tender, Full Range of Motion Respiratory/Chest: No Respiratory Distress, No Accessory Muscle Use, Chest Non- Tender, Decreased Breath Sounds, Crackles Cardiovascular: Normal Peripheral Pulses, Regular Rate, Rhythm, No Edema, No Gallop, No JVD, No Murmur, No Rub GI/Abdominal: Normal Bowel Sounds, Soft, Non-Tender, No Organomegaly, No Distention, No Abnormal Bruit, No Mass, Pelvis Stable (Male) Exam: Deferred Rectal (Males) Exam: Deferred Neurological: Alert, Normal Mood/Affect, Normal Dorsiflexion, CN II-XII Intact, Normal Plantar Flexion, Oriented x 3, Abnormal Finger to Nose (left), Straight Leg Raise (L) (drift), Difficulty Walking. No: Normal Gait, Abnormal Sensation , Abnormal Light Touch, Abnormal Motor, Abnormal Pin Prick, Abn 2 Pt Discrimination Back Exam: Normal Inspection, Decreased Range of Motion Extremities: Normal Inspection, Non-Tender, No Pedal Edema, Normal Capillary Refill, Limited Range of Motion (left arm and leg) Psychiatric: Normal Affect, Normal Mood Skin Exam: Warm, Dry, Intact, Normal Color, No Rash Course - Vital Signs Last Recorded V/S: Last Vital Signs Temp 97.8 F 10/03/18 16:12 Pulse 70 10/03/18 16:12 Resp BP 145/82 H 10/03/18 16:12 Pulse Ox 95 10/03/18 16:12 - Orders/Labs/Meds Orders: Active Orders 24 hr Category Date Time Status Blood Glucose Check, Bedside [RC] ONETIME Care 10/03/18 13:06 Active EKG Documentation Completion [RC] STAT Care 10/03/18 13:06 Active Peripheral IV Care [RC] . DIRECTED Care 10/03/18 13:07 Active Peripheral IV Insertion Adult [OM.PC] Stat Oth 10/03/18 13:06 Ordered Labs: Laboratory Tests 10/03/18 10/03/18 10/03/18 Range/Units 13:05 13:20 13:20 WBC 7.3 (5.0-10.0) 10^3/uL RBC 4.78 (4.6-6.2) 10^6/uL Hgb 13.3 L (14.0-18.0) g/dL Hct 41.9 (40.0-54.0) % MCV 87.7 (80-100) fL MCH 27.8 (27.0-34.0) pg MCHC 31.7 L (33.0-35.0) g/dL Plt Count 240 (150-450) 10^3/uL Neut % (Auto) 65.5 (42.2-75.2) % Lymph % (Auto) 23.4 (20.5-50.1) % [place] % (Auto) 7.6 (2-8) % Eos % (Auto) 2.9 (1.0-3.0) % Baso % (Auto) 0.6 (0.0-1.0) % PT 9.3 (9.0-12.0) SEC INR 0.9 (0.9-1.2) Sodium (135-145) mmol/L Potassium (3.6-5.0) mmol/L Chloride (101-111) mmol/L Carbon Dioxide (21.0-31.0) mmol/L Anion Gap BUN (7-18) mg/dL Creatinine (0.6-1.3) mg/dL Est Cr Clr Drug Dosing mL/min Estimated GFR (MDRD) BUN/Creatinine Ratio Glucose (74-105) mg/dL POC Glucose 121 H (70-105) mg/dl Calcium (8.4-10.2) mg/dl Total Bilirubin (0.2-1.0) mg/dL AST (10-42) IU/L ALT (10-60) IU/L Alkaline Phosphatase (42-121) IU/L Troponin I (0.00-0.02) ng/ml Total Protein (6.7-8.2) g/dl Albumin (3.2-5.5) g/dl Globulin Albumin/Globulin Ratio Urine Color (YELLOW) Urine Appearance (CLEAR) Urine pH (5.0-9.0) Ur Specific [place] (1.005-1.030) Urine Protein (NEGATIVE) Urine Glucose (UA) (NEGATIVE) Urine Ketones (NEGATIVE) Urine Occult Blood (NEGATIVE) Urine Nitrite (NEGATIVE) Urine Bilirubin (NEGATIVE) Urine Urobilinogen (0.2-1.0) mg/dL Ur Leukocyte Esterase (NEGATIVE) Urine Opiates Screen (NEGATIVE) Ur Oxycodone Screen (NEGATIVE) Urine Methadone Screen (NEGATIVE) Ur Barbiturates Screen (NEGATIVE) U Tricyclic Antidepress (NEGATIVE) Ur Phencyclidine Scrn (NEGATIVE) Ur Amphetamine Screen (NEGATIVE) U Methamphetamines Scrn (NEGATIVE) Urine MDMA Screen (NEGATIVE) U Benzodiazepines Scrn (NEGATIVE) Urine Cocaine Screen (NEGATIVE) U Marijuana (THC) Screen (NEGATIVE) Ethyl Alcohol mg/dL 10/03/18 10/03/18 10/03/18 Range/Units 13:20 16:03 16:03 WBC (5.0-10.0) 10^3/uL RBC (4.6-6.2) 10^6/uL Hgb (14.0-18.0) g/dL Hct (40.0-54.0) % MCV (80-100) fL MCH (27.0-34.0) pg MCHC (33.0-35.0) g/dL Plt Count (150-450) 10^3/uL Neut % (Auto) (42.2-75.2) % Lymph % (Auto) (20.5-50.1) % [place] % (Auto) (2-8) % Eos % (Auto) (1.0-3.0) % Baso % (Auto) (0.0-1.0) % PT (9.0-12.0) SEC INR (0.9-1.2) Sodium 139 (135-145) mmol/L Potassium 3.9 (3.6-5.0) mmol/L Chloride 104 (101-111) mmol/L Carbon Dioxide 27.0 (21.0-31.0) mmol/L Anion Gap 11.9 BUN 12 (7-18) mg/dL Creatinine 0.9 (0.6-1.3) mg/dL Est Cr Clr Drug Dosing 88.31 mL/min Estimated GFR (MDRD) > 60 BUN/Creatinine Ratio 13.33 Glucose 130 H (74-105) mg/dL POC Glucose (70-105) mg/dl Calcium 8.6 (8.4-10.2) mg/dl Total Bilirubin 0.4 (0.2-1.0) mg/dL AST 18 (10-42) IU/L ALT 19 (10-60) IU/L Alkaline Phosphatase 90 (42-121) IU/L Troponin I < 0.02 (0.00-0.02) ng/ml Total Protein 7.3 (6.7-8.2) g/dl Albumin 3.8 (3.2-5.5) g/dl Globulin 3.5 Albumin/Globulin Ratio 1.09 Urine Color Yellow (YELLOW) Urine Appearance Clear (CLEAR) Urine pH 7.0 (5.0-9.0) Ur Specific [place] 1.025 (1.005-1.030) Urine Protein Negative (NEGATIVE) Urine Glucose (UA) Negative (NEGATIVE) Urine Ketones Negative (NEGATIVE) Urine Occult Blood Negative (NEGATIVE) Urine Nitrite Negative (NEGATIVE) Urine Bilirubin Negative (NEGATIVE) Urine Urobilinogen 0.2 (0.2-1.0) mg/dL Ur Leukocyte Esterase Negative (NEGATIVE) Urine Opiates Screen Negative (NEGATIVE) Ur Oxycodone Screen Negative (NEGATIVE) Urine Methadone Screen Negative (NEGATIVE) Ur Barbiturates Screen Negative (NEGATIVE) U Tricyclic Antidepress Negative (NEGATIVE) Ur Phencyclidine Scrn Negative (NEGATIVE) Ur Amphetamine Screen Negative (NEGATIVE) U Methamphetamines Scrn Negative (NEGATIVE) Urine MDMA Screen Negative (NEGATIVE) U Benzodiazepines Scrn Positive H (NEGATIVE) Urine Cocaine Screen Negative (NEGATIVE) U Marijuana (THC) Screen Negative (NEGATIVE) Ethyl Alcohol < 5 mg/dL Meds: Medications Discontinued Medications Generic Name Dose Route Start Last Admin Trade Name Freq PRN Reason Stop Dose Admin Sodium Chloride 10 ml 10/03/18 13:06 Saline Flush FLUSH ASDIRECTED PRN Keep Vein Open - Radiology Interpretation Free Text/Narrative:: Head CT wo contrast: Subtle microvascular ischemic changes No sign of intracranial mass, hydrocephalus or bleed See rad report - Re-Assessments/Exams Free Text/Narrative Re-Assessment/Exam: 10/03/18 17:25 Discuss[address] patient case with Dr. Bazan at [facility]. He states the patient would be better suited to be treated at [place] or [facility]. Discussed patient case with Dr. Hodge at [facility] who accepted the patient for transfer to their facility. Departure - Departure Time of Disposition: 16:50 Disposition: DC/Tfer to Acute Hospital 02 Condition: Fair Clinical Impression: Stroke-like symptoms - Discharge Information *PRESCRIPTION DRUG MONITORING PROGRAM REVIEWED*: No *COPY OF PRESCRIPTION DRUG MONITORING REPORT IN PATIENT TEJAL: No Referrals: PCP,None [Primary Care Provider] - Forms: ED Department Discharge, Interfacility Transfer EMTALA - My Orders Last 24 Hours: My Active Orders 10/03/18 13:06 Blood Glucose Check, Bedside [RC] ONETIME EKG Documentation Completion [RC] STAT Peripheral IV Insertion Adult [OM.PC] Stat 10/03/18 13:07 Peripheral IV Care [RC] . DIRECTED - Assessment/Plan Last 24 Hours: My Active Orders 10/03/18 13:06 Blood Glucose Check, Bedside [RC] ONETIME EKG Documentation Completion [RC] STAT Peripheral IV Insertion Adult [OM.PC] Stat 10/03/18 13:07 Peripheral IV Care [RC] . DIRECTED
--- NOTE | 2018-10-03 13:25 | CT ---
EXAMINATION: Head wo Cont SEX: Male AGE: 62 years CLINICAL HISTORY: 62-year-old hypertensive male with acute onset (first time) left-sided weakness. stroke code. Scan technique: Volume acquisition of data emergency unenhanced CT scan of the head and brain obtained with patient lying supine on the Siemens multi slice scanner [place], [place]. All data archived in the PACS system for storage, reformatting axial/sagittal/coronal planes and study (bone/brain windows). INTERPRETATION: 1. Uniformly thick bony calvarium without sign of skull fracture, underlying brain contusion or epidural/subdural hematoma. 2. Symmetric clear pneumatization of the paranasal and left mastoid sinuses (cloudy mastoid sinus on the right). 3. Symmetric kumar-white matter pattern with underlying mirror-image normal ventricular system. No hydrocephalus. 4. No sign of cerebral edema or geographic infarct (tiny punctate areas of decreased attenuation periventricular white matter that may be significant i.e. may represent microvascular ischemic changes). 5. No supratentorial or posterior fossa mass lesion. (Physiologic midline pineal and symmetric choroid plexus calcifications) 6. No sign of acute intracerebral/intraventricular/subarachnoid bleed. 7. Cerebellum and brainstem unremarkable. CONCLUSION: Subtle microvascular ischemic changes. No sign of intracranial mass, hydrocephalus or bleed.
[2018-10-03 13:46] LABS: ANION GAP 11.9; CHLORIDE,CL 104 mmol/L (101-111); SODIUM,NA 139 mmol/L (135-145)
[2018-10-03 16:14] VITALS: BP 145/82
== END 2018-10-03 16:37 ==
LOC: DL.ED 12:59
DX: M62.81 Muscle weakness (generalized) (principal); E78.00 Pure hypercholesterolemia, unspecified; I10 Essential (primary) hypertension; I25.10 Atherosclerotic heart disease of native coronary artery without angina pectoris; J44.9 Chronic obstructive pulmonary disease, unspecified; F41.9 Anxiety disorder, unspecified; F32.9 Major depressive disorder, single episode, unspecified; E03.9 Hypothyroidism, unspecified; Z88.5 Allergy status to narcotic agent; Z91.041 Radiographic dye allergy status; Z88.8 Allergy status to other drugs, medicaments and biological substances; Z79.899 Other long term (current) drug therapy; Z79.82 Long term (current) use of aspirin
CPT/HCPCS: 36415; 70450; 80053; 80305-QW; 81003; 82962; 84484; 85025; 85610; 93005; 99285-25; G0480

== ENCOUNTER 2022-10-09 23:15 | Emergency (ER) | payer MEDICARE, OTHER ==
[2022-10-10 01:19] VITALS: BP 163/77; PULSE 63
[2022-10-10] MEDS ORDERED: Lidocaine 1% 5 ML VIAL INJECT ONE (01:44)
[2022-10-10] MEDS ORDERED: Diphtheria,Pertussis(Acell),Tetanus Vaccine 0.5 ML Syringe IM ONE (02:52)
[2022-10-10] MEDS ORDERED: Sulfacetamide 10% Ophth Soln 15 ML Bottle EYEBOTH ONE (02:53)
== END 2022-10-10 03:08 | disposition home or self-care (01) ==
LOC: DL.ED 23:15
DX: S01.511A Laceration without foreign body of lip, initial encounter (principal); H10.9 Unspecified conjunctivitis; I25.10 Atherosclerotic heart disease of native coronary artery without angina pectoris; E78.00 Pure hypercholesterolemia, unspecified; E03.9 Hypothyroidism, unspecified; J44.9 Chronic obstructive pulmonary disease, unspecified; E66.9 Obesity, unspecified; Z88.8 Allergy status to other drugs, medicaments and biological substances; Z88.5 Allergy status to narcotic agent; Z91.041 Radiographic dye allergy status; Z79.899 Other long term (current) drug therapy; Z79.82 Long term (current) use of aspirin; Z23 Encounter for immunization; Z68.41 Body mass index [BMI] 40.0-44.9, adult; W26.8XXA Contact with other sharp object(s), not elsewhere classified, initial encounter; Y92.009 Unspecified place in unspecified non-institutional (private) residence as the place of occurrence of the external cause
CPT/HCPCS: 12011; 90471; 90715; 99282; 99282-25; J3490

== ENCOUNTER 2024-09-15 19:31 | Emergency (ER) | payer MEDICARE, OTHER ==
[2024-09-15] MEDS: Calcium Chloride 10% 1 GM/10 ML Syringe IVPUSH ONE (19:40)
== END 2024-09-15 19:42 | disposition expired ==
LOC: DL.ED 19:31
DX: I46.9 Cardiac arrest, cause unspecified (principal); I25.10 Atherosclerotic heart disease of native coronary artery without angina pectoris; E78.00 Pure hypercholesterolemia, unspecified; I10 Essential (primary) hypertension; J44.89 Other specified chronic obstructive pulmonary disease; E03.9 Hypothyroidism, unspecified; Z88.5 Allergy status to narcotic agent; Z91.041 Radiographic dye allergy status; Z88.8 Allergy status to other drugs, medicaments and biological substances; Z79.82 Long term (current) use of aspirin; Z79.899 Other long term (current) drug therapy; Z79.890 Hormone replacement therapy
CPT/HCPCS: 36680; 92950; 96374; 96375; 99285; 99285-25; J0171; J3490